=== PATIENT | female | born 1940 | race Caucasian/White ===

== ENCOUNTER 2016-12-15 12:11 | Inpatient (IN) | payer MEDICARE ==
[2016-12-15] MEDS ORDERED: HYDROCODONE/APAP 5/325MG TABLET PO PRN (16:34)
[2016-12-15] MEDS ORDERED: LORATADINE 10 MG TABLET PO PRN (16:35)
[2016-12-15] MEDS: CAPTOPRIL 12.5 MG TABLET PO SCH ×2 (19:03→21:44)
[2016-12-15] MEDS: HYDROCODONE/APAP 5/325MG TABLET PO PRN (21:41)
[2016-12-15] MEDS: DULOXETINE HCL 30 MG CAPSULE.DR PO SCH (21:42)
[2016-12-15] MEDS: SIMVASTATIN 10MG TABLET PO SCH (21:42)
[2016-12-15] MEDS: ASPIRIN 81 MG TABEC PO SCH (21:42)
[2016-12-15] MEDS: PANTOPRAZOLE SODIUM 40 MG TABLET PO SCH (21:42)
[2016-12-15] MEDS: TOLTERODINE 2 MG PO SCH (21:44)
[2016-12-16] MEDS: HYDROCODONE/APAP 5/325MG TABLET PO PRN ×4 (05:20→21:46)
[2016-12-16] MEDS: TRIAMTERENE 37.5/HCTZ 25 CAPSULE PO SCH (10:20)
[2016-12-16] MEDS: METFORMIN ER HCL 500 MG TAB.ER.24H PO SCH (10:21)
[2016-12-16] MEDS: MELOXICAM 7.5 MG TABLET PO SCH (10:21)
[2016-12-16] MEDS: CHOLECALCIFEROL 1,000 UNIT TABLET PO SCH (10:21)
[2016-12-16] MEDS: CAPTOPRIL 12.5 MG TABLET PO SCH ×3 (10:24→21:45)
[2016-12-16] MEDS: CYCLOBENZAPRINE 10MG TABLET PO PRN (10:49)
--- NOTE | 2016-12-16 14:23 | Rehab Evaluation ---
Patient Information - Patient Information Diagnosis: Deconditioning secondary to infection R TKA Ordered Treatment: PT Evaluate and Treat Status: Initial Evaluation History: Detail (The patient was transferred from [facility] to the Swing Bed Unit for IV antiboitics and Rehab on 12/15/16.) Past Medical/Surgical Hx: PAST MEDICAL/SURGICAL HISTORY Past Surgical History tonsillectomy 1947, appendix 1950, gall bladded - 1966, partial vaginal hysterectomy 1976, ovarian cysts removed-1983, left knee scope-1984, left inferior [place] after breaking left leg-1991, sepsis and heart attack 2003, kidney stones removed 2003, spinal fusion 2004 or 2005, sleep apnea 2006, basal cell carcinoma left shoulder 2007 or 2008, Sepsis 2008, back surgery to remove hardware 2009, kidneys stones pulverized-2009, tendon replacement right thumb 2011, toe removed right foot 2013, toe removed left foot 2014, left knee total joint July 2015, right knee total joint September 2015, rhizotomy for back pain 2015 and 2016, ventral hernia repair 11-12-16. 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 PMH - Respiratory Hx Asthma No Hx Bronchitis No Hx Chronic Obstructive No Pulmonary Disease (COPD) Hx Dyspnea Yes: exposure to smoke causes RENETTA Hx Pneumonia Yes Hx Pulmonary Embolism No Hx Sleep Apnea Yes Hx Tuberculosis No Hx of CPAP Yes PMH - Cardiovascular Hx Cardiovascular Disorders Yes Hx Cardiac Catheterization Yes Hx Chest Pain Yes Hx Congestive Heart Failure No Hx Deep Vein Thrombosis No Hx Edema Yes: bilateral lower legs and feet Hx Heart Attack Yes: x2 Hx Hypertension Yes Hx Hypotension No Hx Irregular Heartbeat No Hx Palpitations No Hx Pacemaker/Defibrillator No Hx Vascular Disease No Hx Transient Ischemic Attacks No (TIA) PMH - Neuro Hx Neurological Disorders No Hx Brain Tumor No Hx Cerebrovascular Accident No Hx Dementia No Hx Dizziness No Hx Headaches No Hx Neuropathy No Hx Parkinson's Disease No Hx Seizures No Hx Speech Problem No Hx Syncope No Hx Transient Ischemic Attacks No (TIA) PMH - GI Hx Gastrointestinal Disorders No Hx Abdominal Pain No Hx Celiac Disease No Hx Crohn's Disease No Hx Diverticulitis No Hx Gastrointestinal Bleed No Hx Gastroesophageal Reflux No Hx Hepatitis/Jaundice No Hx Hiatal Hernia No Hx Irritable Bowel No Hx Liver Disease No Hx Nausea/Vomiting No Hx Obstructive Bowel No Hx Pancreatitis No Hx Rectal Bleeding No Hx Ulcer No Hx Weight Loss/Weight Gain No PMH - Hx Bladder Problem Yes: Incontinence, urgency. Had UA done at [facility], results pending Hx Dialysis No Hx Kidney Stones Yes: and sepsis Hx Renal Disease No Hx Urinary Tract Infection Yes Comment: Approximately 40 years ago PMH - Endocrine Hx Endocrine Disorders Yes Hx Diabetes Yes Hx Thyroid Disease Yes Comment: Does daily accuchecks in am PMH - Musculoskeletal Hx Musculoskeletal Disorders Yes Hx Arthritis Yes Hx Back Injury Yes Hx Fibromyalgia No Hx Gout No Hx Musculoskeletal Disease No Hx Osteoporosis No Comment: Spinal surgery PMH - Psych Hx Psychiatric Problems No Hx Anxiety No Hx Behavior Problems No Hx Depression No Hx Emotional Abuse No Hx Sexual Abuse No Hx Suicide Attempt No Major Depressive Episode No Feelings of Hopelessness No PMH - Hematology/Oncology Hx Hematology/Oncology Yes Disorders Hx Anemia Yes: After daughters , none since Hx Blood Disorders No Hx Bruising No Hx Cancer Yes: Basal cell carcinoma removed from left shoulder, no further treatment Hx Chemotherapy No Hx Radiation Therapy No Hx Clotting Problems No Hx Unexplained Bleeding No Premorbid Status: Detail (The patient was independent with all mobility and ADL' s.) Social History: Detail (The patient lives alone in a one story home with a basement with 4 steps at the deck enterance with 2 railings. The patient's bathroom is equipped with a tub/shower combination with grab bars and an elevated toilet. According to the patient , her bathroom is not acessible to a walker. The patient used a standard cane to enter and exit bathroom. The patient's laundary is downstairs, however her daughter has been assisting with laundry and other r d engineer. The patient has two walkers one with wheels , the other with 4 wheels and a seat and 4 single point canes.) Precautions: [place], Fall, Other (PWB R LE, Knee brace on R locked at all times.) - Time With Patient Total Time Spent With Patient (Min): 40 Treatment Procedures: Detail (Initial Evaluation) Subjective Information - Subjective Information Per Patient (The patient had complaints of R knee pain level 5 at the highest using 0 to 10 pain scale.) Objective Data - Mental Status Patient Orientation: Oriented x3 - Visual Perception Appears within normal limits for therapeutic activities - ROM Not within normal limits (R knee ROM is limited ( secondary to R knee infection with spacer in place). All other LE AROM is WNL.) - Strength/Tone Not within normal limits (The patient's L LE strength is 4+ to 5/5 . R LE strength was functional in hip and ankle musculature ( no manual resistance) .The patient was able to acheive a SLR with R LE.) - Bed Mobility Independent (Independent sit to supine transfer.) - Transfers Independent (The patient was independent with sit to and from stand transfer and toilet transfer with verbal cueing and use of grab bar.) - Balance Balance Sitting: Good Balance Standing: Good (The patient was able to stand and pull up pants.) - Gait Detail (The patient ambulated with wheeled walker and brace on R LE with supervision for safety and maximal verbal cues to maintain PWB status on R LE a distance of 40 feet x 1.) Patient Education - Patient Education Teaching Topic: Precautions (The patient was instructed in partial weight bearing meaning 50% of body weight. The patient was unable to maintain this status.) Teaching Method: Discussion Teaching Recipient: Patient Barriers To Learning: Age Related Problem List - Problem List Physical Therapy Problem List: Detail (1) Unable to maintain PWB status on R LE 2) Decreased ambulation distance 3) Nonambulatory on stairs) Goals - Goals Physical Therapy Goals: 1) The patient will ambulate with wheeled walker a distance of 100 feet x 1, PWB on the R LE. 2) Ambulation on stairs with supervision. 3) The patient will be able to safely assess bathroom at home with use of alternate assistive device ( not walker). Prognosis - Prognosis Good Plan - Plan Physical Therapy Plan: PT 3 to 4 times a week M-F for gait training on levels and stairs and functional acitivities.
--- NOTE | 2016-12-16 14:28 | Rehab Evaluation ---
Patient Information - Patient Information Diagnosis: deconditioning d/t infection of R TK removal of hardware, ABX spacer implan Ordered Treatment: OT Evaluate and Treat Status: Initial Evaluation Surgery: No Past Medical/Surgical Hx: PAST MEDICAL/SURGICAL HISTORY Past Surgical History tonsillectomy 1947, appendix 1950, gall bladded - 1966, partial vaginal hysterectomy 1976, ovarian cysts removed-1983, left knee scope-1984, left inferior [place] after breaking left leg-1991, sepsis and heart attack 2003, kidney stones removed 2003, spinal fusion 2004 or 2005, sleep apnea 2006, basal cell carcinoma left shoulder 2007 or 2008, Sepsis 2008, back surgery to remove hardware 2009, kidneys stones pulverized-2009, tendon replacement right thumb 2011, toe removed right foot 2013, toe removed left foot 2014, left knee total joint July 2015, right knee total joint September 2015, rhizotomy for back pain 2015 and 2016, ventral hernia repair 11-12-16. 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 PMH - Respiratory Hx Asthma No Hx Bronchitis No Hx Chronic Obstructive No Pulmonary Disease (COPD) Hx Dyspnea Yes: exposure to smoke causes RENETAT Hx Pneumonia Yes Hx Pulmonary Embolism No Hx Sleep Apnea Yes Hx Tuberculosis No Hx of CPAP Yes PMH - Cardiovascular Hx Cardiovascular Disorders Yes Hx Cardiac Catheterization Yes Hx Chest Pain Yes Hx Congestive Heart Failure No Hx Deep Vein Thrombosis No Hx Edema Yes: bilateral lower legs and feet Hx Heart Attack Yes: x2 Hx Hypertension Yes Hx Hypotension No Hx Irregular Heartbeat No Hx Palpitations No Hx Pacemaker/Defibrillator No Hx Vascular Disease No Hx Transient Ischemic Attacks No (TIA) PMH - Neuro Hx Neurological Disorders No Hx Brain Tumor No Hx Cerebrovascular Accident No Hx Dementia No Hx Dizziness No Hx Headaches No Hx Neuropathy No Hx Parkinson's Disease No Hx Seizures No Hx Speech Problem No Hx Syncope No Hx Transient Ischemic Attacks No (TIA) PMH - GI Hx Gastrointestinal Disorders No Hx Abdominal Pain No Hx Celiac Disease No Hx Crohn's Disease No Hx Diverticulitis No Hx Gastrointestinal Bleed No Hx Gastroesophageal Reflux No Hx Hepatitis/Jaundice No Hx Hiatal Hernia No Hx Irritable Bowel No Hx Liver Disease No Hx Nausea/Vomiting No Hx Obstructive Bowel No Hx Pancreatitis No Hx Rectal Bleeding No Hx Ulcer No Hx Weight Loss/Weight Gain No PMH - Hx Bladder Problem Yes: Incontinence, urgency. Had UA done at [facility], results pending Hx Dialysis No Hx Kidney Stones Yes: and sepsis Hx Renal Disease No Hx Urinary Tract Infection Yes Comment: Approximately 40 years ago PMH - Endocrine Hx Endocrine Disorders Yes Hx Diabetes Yes Hx Thyroid Disease Yes Comment: Does daily accuchecks in am PMH - Musculoskeletal Hx Musculoskeletal Disorders Yes Hx Arthritis Yes Hx Back Injury Yes Hx Fibromyalgia No Hx Gout No Hx Musculoskeletal Disease No Hx Osteoporosis No Comment: Spinal surgery PMH - Psych Hx Psychiatric Problems No Hx Anxiety No Hx Behavior Problems No Hx Depression No Hx Emotional Abuse No Hx Sexual Abuse No Hx Suicide Attempt No Major Depressive Episode No Feelings of Hopelessness No PMH - Hematology/Oncology Hx Hematology/Oncology Yes Disorders Hx Anemia Yes: After daughters , none since Hx Blood Disorders No Hx Bruising No Hx Cancer Yes: Basal cell carcinoma removed from left shoulder, no further treatment Hx Chemotherapy No Hx Radiation Therapy No Hx Clotting Problems No Hx Unexplained Bleeding No Premorbid Status: Detail (Pt lives alone in a 2 story house with basement. She stays on the 1st floor. She has 4 steps with imer handrails at the entrance. She has a tub/shower combination with grab bars and she usually stands to shower. She is unable to use her walker in the bathroom therefore she uses a cane in the bathroom. Prior to hospitalization she was Ind with driving, meal prep and self cares. Her daughter completes laundry and assists with home mgmt. She has an elevated toilet, a 2 wheeled walker, a 4 wheeled walker, 4 straight canes and 2 reachers.) Social History: Detail (Pt has 3 daughters who live locally and a sister.) Precautions: [place], Fall, Other (PWB right LE, knee immobilizer on at all times.) - Time With Patient Total Time Spent With Patient (Min): 45 Treatment Procedures: Detail (OT eval low complexity) Subjective Information - Subjective Information Per Patient Objective Data - Pain Pain Present: Yes (5/10 pain in right knee) - Mental Status Patient Orientation: Oriented x3 - Visual Perception Appears within normal limits for therapeutic activities - ROM Within normal limits (Imer UE AROM WNL) - Strength/Tone Within normal limits (Imer UE MMT 4+/5 throughout) - Coordination Appears within normal limits for therapeutic activities - Bed Mobility Independent (Ind with supine to sit and sit to supine) - Transfers Independent (Ind with sit to stand from EOB, chair and toilet using 2 wheeled walker.) - Balance Balance Sitting: Good Balance Standing: Good - Sensation Intact - Gait Detail (Pt ambulatory in room and hallway with 2 wheel walker. She c/o increased knee pain with activity/ambulation.) - ADL's/IADL's Detail (Pt able to don hospital underwear and hospital pants with mod assist to start over feet due to increased knee and back pain. She was Ind with toileting and washing hands at sink.) Therapy Assessment - Therapy Assessment Detail (Pt very easily fatigued with activity, decreased Ind with LE ADLs, decreased Ind with showering/bathing due to immobilizer.) Problem List - Problem List Occupational Therapy Problem List: Detail (1. Decreased endurance needed for ADLs/IADLs. 2. Decreased Ind with total body dressing. 3. Decreased Ind with showering/bathing.) Goals - Goals Occupational Therapy Goals: 1. Pt will be Ind with total body dressing using adaptive equipment. 2. Pt will be Ind with showering and/or sponge bathing at sink. 3. Pt will demonstrate improved endurance to allow safe and Ind return home. Prognosis - Prognosis Good Plan - Plan Occupational Therapy Plan: OT 2-4 days per week to address endurance, self cares and functional mobility to allow safe and Ind return home.
[2016-12-16] MEDS: DAPTOMYCIN 500 MG/VIAL IV SCH (14:43)
[2016-12-16] MEDS: SIMVASTATIN 10MG TABLET PO SCH (21:45)
[2016-12-16] MEDS: ASPIRIN 81 MG TABEC PO SCH (21:45)
[2016-12-16] MEDS: PANTOPRAZOLE SODIUM 40 MG TABLET PO SCH (21:45)
[2016-12-16] MEDS: DULOXETINE HCL 30 MG CAPSULE.DR PO SCH (21:46)
[2016-12-16] MEDS: TOLTERODINE 2 MG PO SCH (21:49)
[2016-12-17] MEDS: TRAMADOL HCL 50 MG TABLET PO PRN (00:06)
[2016-12-17 08:05] LABS: URINE APPEARANCE SL CLOUDY; URINE BILIRUBIN NEGATIVE (NEGATIVE); URINE BLOOD NEGATIVE (NEGATIVE); URINE COLOR YELLOW; URINE GLUCOSE (UA) NEGATIVE (NEGATIVE); URINE KETONE NEGATIVE (NEGATIVE); URINE LEUKOCYTE ESTERASE SMALL (NEGATIVE); URINE NITRITE NEGATIVE (NEGATIVE); URINE PROTEIN NEGATIVE (NEGATIVE); URINE UROBILINOGEN 0.2 E.U./dL (0.20 - 1.00)
[2016-12-17 08:50] LABS: URINE RBC 0 - 2 (NONE SEEN); URINE SQUAMOUS EPITHELIAL CELL 0 - 2 /hpf; URINE WBC 0 - 2 (0-2/hpf)
[2016-12-17] MEDS: CAPTOPRIL 12.5 MG TABLET PO SCH ×3 (10:59→22:27)
[2016-12-17] MEDS: TRIAMTERENE 37.5/HCTZ 25 CAPSULE PO SCH (11:00)
[2016-12-17] MEDS: MELOXICAM 7.5 MG TABLET PO SCH (11:00)
[2016-12-17] MEDS: METFORMIN ER HCL 500 MG TAB.ER.24H PO SCH (11:00)
[2016-12-17] MEDS: CHOLECALCIFEROL 1,000 UNIT TABLET PO SCH (11:01)
[2016-12-17] MEDS: HYDROCODONE/APAP 5/325MG TABLET PO PRN ×2 (11:04→22:29)
--- NOTE | 2016-12-17 11:27 | Physical Therapy Tx Note ---
Physical Therapy Tx Note - Treatment Note Tolerated: Good Total Time Spent With Patient: 40 Physical Therapy Tx Note: Detail (Patient was seated in bathroom upon FORKLIFT MECHANIC arrival. Patient states 4/10 pain in right knee. Patient states tired today, didn't sleep well last night. Patient transferred sit to and from stand independently. Patient ambulated 13 feet with wheeled walker SBA x1. Patient transferred sit to and from stand independently. Patient ambulated 212 feet with wheeled walker SBA x1. Patient performed the following exercises seated in chair x10-15 reps each: heel raises, toe raises, left hip flexion, left LAQ, hip abduction with red theraband, isometric hip adduction, seated glut squeezes , abdominal isometrics, right SLR, and quad sets. Patient tolerated treatment well. Patient reports complaints of UE pain with ambulation. Patient displays decreased strength and endurance with seated hip flexion, LAQ, SLR, quad sets, glut squeezes, and abdominal isometrics. Patient reports fatigued after treatment. Patient was left seated in chair with call light within reach.) Physical Therapy Problem List: Detail (1) Unable to maintain PWB status on R LE 2) Decreased ambulation distance 3) Nonambulatory on stairs) Physical Therapy Goals: 1) The patient will ambulate with wheeled walker a distance of 100 feet x 1, PWB on the R LE. 2) Ambulation on stairs with supervision. 3) The patient will be able to safely assess bathroom at home with use of alternate assistive device ( not walker). Prognosis: Good Physical Therapy Plan: PT 3 to 4 times a week M-F for gait training on levels and stairs and functional acitivities.
[2016-12-17] MEDS: DAPTOMYCIN 500 MG/VIAL IV SCH (15:02)
[2016-12-17] MEDS: SIMVASTATIN 10MG TABLET PO SCH (22:27)
[2016-12-17] MEDS: ASPIRIN 81 MG TABEC PO SCH (22:28)
[2016-12-17] MEDS: DULOXETINE HCL 30 MG CAPSULE.DR PO SCH (22:28)
[2016-12-17] MEDS: TOLTERODINE 2 MG PO SCH (22:31)
[2016-12-17] MEDS: PANTOPRAZOLE SODIUM 40 MG TABLET PO SCH (22:33)
[2016-12-18] MEDS: HYDROCODONE/APAP 5/325MG TABLET PO PRN ×3 (02:52→22:05)
[2016-12-18] MEDS: CHOLECALCIFEROL 1,000 UNIT TABLET PO SCH (10:03)
[2016-12-18] MEDS: CAPTOPRIL 12.5 MG TABLET PO SCH ×3 (10:04→22:04)
[2016-12-18] MEDS: TRIAMTERENE 37.5/HCTZ 25 CAPSULE PO SCH (10:04)
[2016-12-18] MEDS: METFORMIN ER HCL 500 MG TAB.ER.24H PO SCH (10:04)
[2016-12-18] MEDS: MELOXICAM 7.5 MG TABLET PO SCH (10:05)
--- NOTE | 2016-12-18 10:50 | Occupational Therapy Tx Note ---
Occupational Therapy Tx Note - Treatment Note Tolerated: Good Total Time Spent With Patient: 60 Occupational Therapy Treatment Note: Detail (Pt sitting in bedside chair upon arrival. Ind. sit<>stand t/f w/ 2WW them SBA amb into bathroom for Independent toileting & toilet t/f. Pt ind. after setup to brush teeth at bedside chair. Ind. w/ doff of gown. Ind w/ sponge bathing after initial setup for face, underarms, BUE's, abdomen. Pt declined LB sponge bathing 2^ having just done this last night. Ind w/ dress don. Pt t/f'd to bed from bedside chair ind. to adjust immobilizer brace 2^ brace sliding down. Ind w/ bed mob. Mod A to adjust and re-tighten strapping on immobilizer brace. SBA amb w/ 2WW 115 ft. Pt returned to room to complete theraband ex's to BUE's. Pt completed 10 reps of shld flex, shld ext, shld abd, horz. abd, tricep, and bicep curls (left side only for bicep curls). Pt [place] all ex's well and eval wanting to do more although reports being tired post treatment session.) Occupational Therapy Problem List: Detail (1. Decreased endurance needed for ADLs/IADLs. 2. Decreased Ind with total body dressing. 3. Decreased Ind with showering/bathing.) Occupational Therapy Goals: 1. Pt will be Ind with total body dressing using adaptive equipment. 2. Pt will be Ind with showering and/or sponge bathing at sink. 3. Pt will demonstrate improved endurance to allow safe and Ind return home. Prognosis: Good Occupational Therapy Plan: OT 2-4 days per week to address endurance, self cares and functional mobility to allow safe and Ind return home.
[2016-12-18] MEDS: DAPTOMYCIN 500 MG/VIAL IV SCH (15:16)
[2016-12-18] MEDS: SIMVASTATIN 10MG TABLET PO SCH (22:04)
[2016-12-18] MEDS: DULOXETINE HCL 30 MG CAPSULE.DR PO SCH (22:04)
[2016-12-18] MEDS: PANTOPRAZOLE SODIUM 40 MG TABLET PO SCH (22:05)
[2016-12-18] MEDS: ASPIRIN 81 MG TABEC PO SCH (22:05)
[2016-12-18] MEDS: TOLTERODINE 2 MG PO SCH (22:05)
[2016-12-18] MEDS: CYCLOBENZAPRINE 10MG TABLET PO PRN (23:47)
[2016-12-19] MEDS: HYDROCODONE/APAP 5/325MG TABLET PO PRN ×3 (07:24→22:47)
[2016-12-19] MEDS: CAPTOPRIL 12.5 MG TABLET PO SCH ×3 (10:17→22:47)
[2016-12-19] MEDS: METFORMIN ER HCL 500 MG TAB.ER.24H PO SCH (10:18)
[2016-12-19] MEDS: TRIAMTERENE 37.5/HCTZ 25 CAPSULE PO SCH (10:18)
[2016-12-19] MEDS: MELOXICAM 7.5 MG TABLET PO SCH (10:18)
[2016-12-19] MEDS: CHOLECALCIFEROL 1,000 UNIT TABLET PO SCH (10:18)
[2016-12-19 12:50] LABS: ALB/GLOB RATIO 1.2 (1.1-1.8); ALBUMIN 3.7 g/dL (4.0-5.0); ALKALINE PHOSPHATASE 100 U/L (35-104); ALT/SGPT 13 U/L (<33); AST/SGOT 16 U/L (10.0-35.0); BLOOD UREA NITROGEN 21 mg/dL (8-23); CREATININE 0.7 mg/dL (0.5-0.9); EST GLOMERULAR FILTRATION RATE > 60 mL/min; GLUCOSE,RANDOM 137 mg/dL (74-109); TOTAL PROTEIN 6.7 g/dL (6.6-8.7)
[2016-12-19] MEDS: DAPTOMYCIN 500 MG/VIAL IV SCH (15:44)
[2016-12-19] MEDS: DULOXETINE HCL 30 MG CAPSULE.DR PO SCH (22:47)
[2016-12-19] MEDS: PANTOPRAZOLE SODIUM 40 MG TABLET PO SCH (22:47)
[2016-12-19] MEDS: ASPIRIN 81 MG TABEC PO SCH (22:47)
[2016-12-19] MEDS: SIMVASTATIN 10MG TABLET PO SCH (22:47)
[2016-12-19] MEDS: TOLTERODINE 2 MG PO SCH (22:48)
[2016-12-19] MEDS: CYCLOBENZAPRINE 10MG TABLET PO PRN (22:51)
[2016-12-20] MEDS: CYCLOBENZAPRINE 10MG TABLET PO PRN ×2 (08:58→22:10)
[2016-12-20] MEDS: HYDROCODONE/APAP 5/325MG TABLET PO PRN ×3 (08:58→22:10)
[2016-12-20] MEDS: CHOLECALCIFEROL 1,000 UNIT TABLET PO SCH (09:46)
[2016-12-20] MEDS: CAPTOPRIL 12.5 MG TABLET PO SCH ×3 (09:47→22:27)
[2016-12-20] MEDS: METFORMIN ER HCL 500 MG TAB.ER.24H PO SCH (09:47)
[2016-12-20] MEDS: MELOXICAM 7.5 MG TABLET PO SCH (09:47)
[2016-12-20] MEDS: TRIAMTERENE 37.5/HCTZ 25 CAPSULE PO SCH (09:47)
[2016-12-20] MEDS: DAPTOMYCIN 500 MG/VIAL IV SCH (16:11)
[2016-12-20] MEDS: ASPIRIN 81 MG TABEC PO SCH (22:27)
[2016-12-20] MEDS: TOLTERODINE 2 MG PO SCH (22:27)
[2016-12-20] MEDS: DULOXETINE HCL 30 MG CAPSULE.DR PO SCH (22:27)
[2016-12-20] MEDS: PANTOPRAZOLE SODIUM 40 MG TABLET PO SCH (22:27)
[2016-12-20] MEDS: SIMVASTATIN 10MG TABLET PO SCH (22:28)
[2016-12-21] MEDS: METFORMIN ER HCL 500 MG TAB.ER.24H PO SCH (09:40)
[2016-12-21] MEDS: HYDROCODONE/APAP 5/325MG TABLET PO PRN ×3 (09:40→19:53)
[2016-12-21] MEDS: TRIAMTERENE 37.5/HCTZ 25 CAPSULE PO SCH (09:40)
[2016-12-21] MEDS: CHOLECALCIFEROL 1,000 UNIT TABLET PO SCH (09:40)
[2016-12-21] MEDS: MELOXICAM 7.5 MG TABLET PO SCH (09:40)
[2016-12-21] MEDS: CAPTOPRIL 12.5 MG TABLET PO SCH ×3 (09:41→22:34)
--- NOTE | 2016-12-21 10:22 | Physical Therapy Tx Note ---
Physical Therapy Tx Note - Treatment Note Tolerated: Good Total Time Spent With Patient: 45 Physical Therapy Tx Note: Detail (Patient states 5/10 pain in right knee. Patient states would like to try a car transfer today. Patient transferred sit to and from stand SBA x1. Patient ambulated 178 feet with wheeled walker SBA x1. Patient transferred sit to and from stand SBA x1. Patient performed the following exercises x10 reps each: L SLR, quad sets, glut squeezes, L hamstring sets, abdominal isometrics, L supine hip abduction with red theraband, L supine hip adduction with red theraband, and ankle pumps. Patient tolerated treatment well. Patient reports knee sore after treatment. Patient was left supine in bed with call light within reach. STOREROOM KEEPER returned 30 minutes later to practice car transfer. Patient transferred sit to and from stand from bed to wheelchair SBA x1. Patient transferred sit to and and from stand from wheelchair to and from car SBA x1. Patient transferred sit to and from stand wheelchair to chair. Patient reports knee sore after transfer. Patient was left seated in chair with call light within reach.) Physical Therapy Problem List: Detail (1) Unable to maintain PWB status on R LE 2) Decreased ambulation distance 3) Nonambulatory on stairs) Physical Therapy Goals: 1) The patient will ambulate with wheeled walker a distance of 100 feet x 1, PWB on the R LE. 2) Ambulation on stairs with supervision. 3) The patient will be able to safely assess bathroom at home with use of alternate assistive device ( not walker). Prognosis: Good Physical Therapy Plan: PT 3 to 4 times a week M-F for gait training on levels and stairs and functional acitivities.
[2016-12-21] MEDS: CYCLOBENZAPRINE 10MG TABLET PO PRN (11:14)
[2016-12-21] MEDS: TRAMADOL HCL 50 MG TABLET PO PRN ×3 (11:16→22:35)
[2016-12-21] MEDS: DAPTOMYCIN 500 MG/VIAL IV SCH (14:38)
[2016-12-21] MEDS: 0.9 % SODIUM CHLORIDE 10ML SYR IVP SCH ×2 (14:38→14:45)
[2016-12-21] MEDS: HEPARIN SODIUM FLUSH 100 UNITS/ML SYR 5ML IVP SCH (14:45)
[2016-12-21] MEDS: DULOXETINE HCL 30 MG CAPSULE.DR PO SCH (22:34)
[2016-12-21] MEDS: ASPIRIN 81 MG TABEC PO SCH (22:34)
[2016-12-21] MEDS: PANTOPRAZOLE SODIUM 40 MG TABLET PO SCH (22:34)
[2016-12-21] MEDS: SIMVASTATIN 10MG TABLET PO SCH (22:34)
[2016-12-21] MEDS: TOLTERODINE 2 MG PO SCH (22:35)
[2016-12-22] MEDS: HYDROCODONE/APAP 5/325MG TABLET PO PRN ×3 (01:07→20:50)
[2016-12-22] MEDS: CAPTOPRIL 12.5 MG TABLET PO SCH ×3 (09:14→22:53)
[2016-12-22] MEDS: METFORMIN ER HCL 500 MG TAB.ER.24H PO SCH (09:15)
[2016-12-22] MEDS: TRIAMTERENE 37.5/HCTZ 25 CAPSULE PO SCH (09:15)
[2016-12-22] MEDS: MELOXICAM 7.5 MG TABLET PO SCH (09:15)
[2016-12-22] MEDS: CHOLECALCIFEROL 1,000 UNIT TABLET PO SCH (09:16)
--- NOTE | 2016-12-22 11:13 | Physical Therapy Tx Note ---
Physical Therapy Tx Note - Treatment Note Tolerated: Good Total Time Spent With Patient: 30 Physical Therapy Tx Note: Detail (The patient was up in a chair when PT arrived. The patient required assist to put on R shoe due to increased edema and was independent donning L shoe with sewing machine operator paper bags. The patient had complaints of R knee pain and shoulder pain when ambulating. The patient ambulated 140 feet with 2 wheeled walker independently PWB on R LE. The patient completed the following LE strengthening while supine: L SLR, hip abduction and adduction with red T-band, L quad sets and hamstring sets all x 10 reps, gluteal sets and abdominal isometrics x 10 reps. The patient tolerated treatment well with only complaints of R shoulder during ambulation.) Physical Therapy Problem List: Detail (1) Unable to maintain PWB status on R LE 2) Decreased ambulation distance 3) Nonambulatory on stairs) Physical Therapy Goals: 1) The patient will ambulate with wheeled walker a distance of 100 feet x 1, PWB on the R LE. 2) Ambulation on stairs with supervision. 3) The patient will be able to safely assess bathroom at home with use of alternate assistive device ( not walker). Physical Therapy Plan: PT 3 to 4 times a week M-F for gait training on levels and stairs and functional acitivities.
[2016-12-22] MEDS: 0.9 % SODIUM CHLORIDE 10ML SYR IVP SCH (15:57)
[2016-12-22] MEDS: DAPTOMYCIN 500 MG/VIAL IV SCH (15:57)
[2016-12-22] MEDS: HEPARIN SODIUM FLUSH 100 UNITS/ML SYR 5ML IVP SCH (16:08)
[2016-12-22] MEDS: PANTOPRAZOLE SODIUM 40 MG TABLET PO SCH (22:52)
[2016-12-22] MEDS: ASPIRIN 81 MG TABEC PO SCH (22:52)
[2016-12-22] MEDS: TOLTERODINE 2 MG PO SCH (22:53)
[2016-12-22] MEDS: DULOXETINE HCL 30 MG CAPSULE.DR PO SCH (22:53)
[2016-12-22] MEDS: SIMVASTATIN 10MG TABLET PO SCH (22:53)
[2016-12-23] MEDS: CAPTOPRIL 12.5 MG TABLET PO SCH ×3 (10:16→22:03)
[2016-12-23] MEDS: TRIAMTERENE 37.5/HCTZ 25 CAPSULE PO SCH (10:17)
[2016-12-23] MEDS: MELOXICAM 7.5 MG TABLET PO SCH (10:18)
[2016-12-23] MEDS: METFORMIN ER HCL 500 MG TAB.ER.24H PO SCH (10:18)
[2016-12-23] MEDS: CHOLECALCIFEROL 1,000 UNIT TABLET PO SCH (10:18)
[2016-12-23] MEDS: OXYCODONE/APAP 10MG-325MG TABLET PO PRN ×2 (10:20→20:23)
--- NOTE | 2016-12-23 13:19 | Occupational Therapy Tx Note ---
Occupational Therapy Tx Note - Treatment Note Tolerated: Fair Total Time Spent With Patient: 45 (ADL) Occupational Therapy Treatment Note: Detail (S: Pt up in chair, ready to attempt showering. O: Sit to stand and amb to shower bench with 2 wheeled walker Indly. Doffed PJ gown and briefs Ind with lead handler. Doffed knee brace in sitting with mod difficulty but Indly. Completed total body showering in sitting Indly with hand held shower. Dried self Indly. Donned shirt Indly. Donned right knee brace with verbal cues and modified technique. Donned underpants with lead handler Indly. Sit to stand and amb to sink for oral hygiene and brushing hair Indly. Pt amb back to chair with 2 wheeled walker Indly. Nursing to complete dressing change and finish LE dressing. A: Pt fatigued and had moderate difficulty with doffing and donning knee brace. Reports difficulty with shiela hand strength needed for velcro closures on brace.) Occupational Therapy Problem List: Detail (1. Decreased endurance needed for ADLs/IADLs. 2. Decreased Ind with total body dressing. 3. Decreased Ind with showering/bathing.) Occupational Therapy Goals: 1. Pt will be Ind with total body dressing using adaptive equipment. 2. Pt will be Ind with showering and/or sponge bathing at sink. 3. Pt will demonstrate improved endurance to allow safe and Ind return home. Prognosis: Good (Will address hand strengthening as well as don/doffing knee brace.) Occupational Therapy Plan: OT 2-4 days per week to address endurance, self cares and functional mobility to allow safe and Ind return home.
[2016-12-23] MEDS: 0.9 % SODIUM CHLORIDE 10ML SYR IVP SCH (15:16)
[2016-12-23] MEDS: DAPTOMYCIN 500 MG/VIAL IV SCH (15:17)
[2016-12-23] MEDS: HEPARIN SODIUM FLUSH 100 UNITS/ML SYR 5ML IVP SCH (15:20)
[2016-12-23] MEDS: TOLTERODINE 2 MG PO SCH (22:03)
[2016-12-23] MEDS: PANTOPRAZOLE SODIUM 40 MG TABLET PO SCH (22:03)
[2016-12-23] MEDS: ASPIRIN 81 MG TABEC PO SCH (22:03)
[2016-12-23] MEDS: SIMVASTATIN 10MG TABLET PO SCH (22:03)
[2016-12-23] MEDS: DULOXETINE HCL 30 MG CAPSULE.DR PO SCH (22:03)
[2016-12-24] MEDS: OXYCODONE/APAP 10MG-325MG TABLET PO PRN ×4 (00:23→18:21)
--- NOTE | 2016-12-24 10:25 | Physical Therapy Tx Note ---
Physical Therapy Tx Note - Treatment Note Tolerated: Good Total Time Spent With Patient: 30 Physical Therapy Tx Note: Detail (Patient states 4/10 pain in right knee. Patient states right shoulder and hands are sore today. Patient transferred sit to and from stand independently. Patient ambulated 280 feet with wheeled walker SBA x1. Patient performed the following exercises x10-12 reps each: rowing with red theraband, shoulder extension with red theraband, shoulder external rotation with red theraband, PNF D1 and D2 flexion and extension diagonals, bicep curls with red theraband, tricep extension with red theraband, and dips. Patient tolerated treatment well. Patient displays decreased strength and endurance with dips, bicep curls, tricep extension, PNF D1 and D2 flexion and extension diagonals, and shoulder external rotation. Patient reports shoulder sore after treatment. Patient displays shortness of breath with exercises. Patient was left seated in chair with call light within reach.) Physical Therapy Problem List: Detail (1) Unable to maintain PWB status on R LE 2) Decreased ambulation distance 3) Nonambulatory on stairs) Physical Therapy Goals: 1) The patient will ambulate with wheeled walker a distance of 100 feet x 1, PWB on the R LE. 2) Ambulation on stairs with supervision. 3) The patient will be able to safely assess bathroom at home with use of alternate assistive device ( not walker). Prognosis: Good Physical Therapy Plan: PT 3 to 4 times a week M-F for gait training on levels and stairs and functional acitivities.
[2016-12-24] MEDS: CAPTOPRIL 12.5 MG TABLET PO SCH ×4 (10:41→21:18)
[2016-12-24] MEDS: MELOXICAM 7.5 MG TABLET PO SCH (10:41)
[2016-12-24] MEDS: CHOLECALCIFEROL 1,000 UNIT TABLET PO SCH (10:41)
[2016-12-24] MEDS: TRIAMTERENE 37.5/HCTZ 25 CAPSULE PO SCH (10:42)
[2016-12-24] MEDS: METFORMIN ER HCL 500 MG TAB.ER.24H PO SCH (10:42)
[2016-12-24] MEDS: TRAMADOL HCL 50 MG TABLET PO PRN ×2 (10:51→21:17)
[2016-12-24] MEDS: DAPTOMYCIN 500 MG/VIAL IV SCH (14:49)
[2016-12-24] MEDS: 0.9 % SODIUM CHLORIDE 10ML SYR IVP SCH (14:49)
[2016-12-24] MEDS: HEPARIN SODIUM FLUSH 100 UNITS/ML SYR 5ML IVP SCH (14:53)
--- NOTE | 2016-12-24 15:43 | History & Physical ---
History of Present Illness - Date Date of Service for History & Physical: 12/21/16 - History of Present Illness Admitting Diagnosis: Deconditioning due to infection of RTK, removal of harware and ABX spacer implanted General - Cognitive Patterns Orientation: Oriented x3 - Communication Preferred Language?: Montenegrin [employer] Required: No Level of Education: High School, College Preferred Method of Learning: Seeing, Doing, Reading Comprehension Ability: No Impairment Able to Read: Yes Able to Write: Yes Select best description of speech pattern: Clear Speech Ability to express ideas and wants: Understood Understanding verbal content: Understands - Psychosocial Well-Being Usual Living Arrangement: Alone Living Arrangement Comment: two story home Relationship Status: / Current and Past Employment History: Retired Employment History Comment: worked as a police department secretary in offices Clubs/Organizations Belongs To: [email or web address] Christianity: Yazdanism Latter-Day: [facility] Yazdanism Verbalizes Interest in Activities During Stay: Yes Specify Interests: simone, coloring, scrapbooking Personality: Extroverted States they do not want to participate in group activities: No Patient Involved in the Community: Yes Describe Involvement: [employer] Patient Drives: Yes Patients Leisure Activities Prior to Admission: [employer] groups, coloring, crocheting, spending time with family Plans to Return to the Following Leisure Activities: same as above - Physical Functioning Activity Level: Up as tolerated Turning: Self ad nanci ROM Ability: Moves all extremities Assistive Devices: 2 Wheel Walker Activity Level Comment: May be up in vivas independently per Jael PT Ambulation Ability: Independent Bed Mobility: Independent Transfer Ability: Independent Bathing Ability: Needs Assist Personal Hygiene: Independent Dressing Ability: Independent Eating (Feeding) Ability: Independent Toileting Ability: Independent Administer Own Medication: Independent - Continence Bowel Pattern: Normal for Patient Bladder Pattern: Normal, Dribbling, Urgency, Incontinent Urinary Incontinence: Urge - Dental Status Broken or loosely fitting full or partial dentures: No No natural teeth or tooth fragment(s) (edentulous): No Abnormal mouth tissue (ulcers, masses, oral lesions, etc.): No Obvious or likely cavity or broken natural teeth: No Inflamed or bleeding gums or loose natural teeth: No Mouth/facial pain, discomfort or difficulty chewing: No - Nutrition Screening Poor oral intake > 1 week: No Unplanned weight loss in specified time frame: No Nutrition Support via tube feedings or parenteral nutrition: No Pressure Ulcer: No Significantly underweight define as BMI <18.5 kg/m2: No Albumin <2.5mg/dL: No Persistent nausea/vomiting/diarrhea >3 days: No Difficulty chewing/swallowing/mouth sores: No Admitting Diagnosis: Yes Nutrition Risk Score: Low Risk Review of Systems Reviewed: No additional complaints except as noted below Constitutional: Reports: As per HPI. Denies: Chills, Fever, Malaise, Night sweats, Weakness, Weight change Eyes: Reports: As per HPI. Denies: Eye discharge, Eye pain, Photophobia, Vision change ENT: Reports: As per HPI. Denies: Congestion, Dental pain, Ear pain, Epistaxis , Hearing loss, Throat pain Respiratory: Reports: As per HPI. Denies: Cough, Dyspnea, Hemoptysis, Stridor, Wheezes Cardiovascular: Reports: As per HPI. Denies: Arrhythmia, Chest pain, Dyspnea on exertion, Edema, Murmurs, Orthopnea, Palpitations, Paroxysmal nocturnal dyspnea, Rheumatic Fever, Syncope Endocrine: Reports: As per HPI. Denies: Fatigue, Heat or cold intolerance, Polydipsia, Polyuria Gastrointestinal: Reports: As per HPI. Denies: Abdominal pain, Constipation, Diarrhea, Hematemesis, Hematochezia, Melena, Nausea, Vomiting Genitourinary: Reports: As per HPI. Denies: Abnormal menses, Discharge, Dyspareunia, Dysuria, Frequency, Hematuria, Incontinence, Retention, Urgency Musculoskeletal: Reports: As per HPI. Denies: Arthralgia, Back pain, Gout, Joint swelling, Myalgia, Neck pain Skin: Reports: As per HPI. Denies: Bruising, Change in color, Change in hair/ nails, Lesions, Pruritus, Rash Neurological: Reports: As per HPI. Denies: Abnormal gait, Confusion, Headache, Numbness, Paresthesias, Seizure, Tingling, Tremors, Vertigo, Weakness Psychiatric: Reports: As per HPI. Denies: Anxiety, Auditory hallucinations, Depression, Homicidal thoughts, Suicidal thoughts, Visual hallucinations Hematological/Lymphatic: Reports: As per HPI. Denies: Anemia, Blood Clots, Easy bleeding, Easy bruising, Swollen glands Past Medical History - SOCIAL HISTORY Smoking Status: Former smoker Alcohol Use: Rare Drug use: None - SURGICAL HISTORY Past Surgical History: tonsillectomy 1946, appendix 1949, gall bladded-1966, partial vaginal hysterectomy 1976, ovarian cysts removed-1983, left knee scope- 1984, left inferior CA after breaking left leg-1991, sepsis and heart attack 2003, kidney stones removed 2003, spinal fusion 2004 or 2005, sleep apnea 2006, basal cell carcinoma left shoulder 2007 or 2008, Sepsis 2008, back surgery to remove hardware 2009, kidneys stones pulverized-2009, tendon replacement right thumb 2011, toe removed right foot 2013, toe removed left foot 2014, left knee total joint July 2015, right knee total joint September 2015, rhizotomy for back pain 2015 and 2016, ventral hernia repair 11-12-16. Infected right total knee arthroplasty with removal of arthroplasty and placement of antibiotic spacer . - RESPIRATORY Hx Asthma: No Hx Bronchitis: No Hx COPD: No Hx Dyspnea: Yes (exposure to smoke causes RENETTA) Hx Pneumonia: Yes Hx Pulmonary Embolism: No Hx Sleep Apnea: Yes Hx Tuberculosis: No - CARDIOVASCULAR Hx Cardio Disorders: Yes Hx Cardiac Cath: Yes Hx Chest Pain: Yes Hx CHF: No Hx Deep Vein Thrombosis: No Hx Edema: Yes (bilateral lower legs and feet) Hx Heart Attack: Yes (x2) Hx Hypertension: Yes Hx Hypotension: No Hx Irregular Heartbeat: No Hx Palpitations: No Hx Pacemaker/Defib: No Hx Vascular Disease: No - NEURO Hx Seizures: No - GI Hx GI Disorders: No Hx Abdominal Pain: No Hx Celiac Disease: No Hx Crohn's Disease: No Hx Diverticulitis: No Hx GI Bleed: No Hx Reflux: No Hx Hepatitis/Jaundice: No Hx Hiatal Hernia: No Hx Irritable Bowel: No Hx Liver Disease: No Hx Nausea/Vomiting: No Hx Obstructive Bowel: No Hx Pancreatitis: No Hx Rectal Bleeding: No Hx Ulcer: No Hx Wt Loss/Wt Gain: No - Hx Bladder Problem: Yes (Incontinence, urgency. Had UA done at [facility], results pending) Hx Dialysis: No Hx Kidney Stones: Yes (and sepsis) Hx Renal Disease: No Hx UTI: Yes Comment:: Approximately 40 years ago - ENDOCRINE Hx Diabetes: Yes - MUSCULOSKELETAL Hx Musculoskeletal Disorders: Yes Hx Arthritis: Yes Hx Back Injury: Yes Hx Fibromyalgia: No Hx Gout: No Hx Musculoskeletal Disease: No Hx Osteoporosis: No Comment:: Spinal surgery - PSYCH Hx Psych Problems: No Hx Anxiety: No Hx Behavior Problems: No Hx Depression: No Hx Emotional Abuse: No Hx Sexual Abuse: No Hx Suicide Attempt: No Major Depressive Episode: No Feelings of Hopelessness: No - HEMATOLOGY/ONCOLOGY Hx Hematology/Oncology Disorders: Yes Hx Anemia: Yes (After daughters , none since) Hx Blood Disorders: No Hx Bruising: No Hx Cancer: Yes (Basal cell carcinoma removed from left shoulder, no further treatment) Hx Chemotherapy: No Hx Radiation Therapy: No Hx Clotting Problems: No Hx Unexplained Bleeding: No Hx Blood Transfusions: No Family Medical History Any Significant Family History?: Yes Hx Alcohol Use: Father, Mother Hx Cancer: Mother *Cancer Comment: breast cancer Hx HTN: Mother, Grandparents H&P Meds/Allergies - Allergies Allergies: Allergies Allergy/AdvReac Type Severity Reaction Status Date / Time albuterol Allergy BLISTERS Verified 12/15/16 17:10 apremilast [From Otezla] Allergy SWELLING Verified 12/15/16 17:10 (GENERAL) celecoxib [From Celebrex] Allergy SWELLING Verified 12/15/16 17:10 (GENERAL) doxycycline Allergy SWELLING Verified 12/15/16 17:10 OF THE FACE linezolid [From Zyvox] Allergy SWELLING Verified 12/15/16 17:10 (GENERAL) oxybutynin Allergy SWELLING Verified 12/15/16 17:10 OF THE FACE oxycodone [From Percocet] Allergy ALTERED Verified 12/15/16 17:10 MENTAL STATUS Sulfa (Sulfonamide Allergy ANEMIA Verified 12/15/16 17:10 Antibiotics) adhesive tape AdvReac RASH Verified 12/15/16 17:10 onion AdvReac NAUSEA AND Verified 12/15/16 17:10 VOMITING pregabalin [From Lyrica] AdvReac DIZZINESS Verified 12/15/16 17:10 - Active Medications Active Medications: Current Medications Aspirin (Ecotrin (Ec)) 81 mg PO QHS [facility] Last Admin: 12/23/16 22:03 Dose: 81 mg Captopril (Capoten) 50 mg PO TID MIAH Last Admin: 12/24/16 14:57 Dose: 50 mg Cyclobenzaprine HCl (Flexeril) 10 mg PO TID PRN PRN Reason: MUSCLE SPASM Last Admin: 12/21/16 11:14 Dose: 10 mg Daptomycin (Cubicin) 800 mg IV 1500 MIAH Last Admin: 12/24/16 14:49 Dose: 800 mg Duloxetine HCl (Cymbalta) 30 mg PO QHS [facility] Last Admin: 12/23/16 22:03 Dose: 30 mg Heparin Sodium (Porcine) () 500 unit IVP 1530 [facility] Last Admin: 12/24/16 14:53 Dose: 500 unit Loratadine (Claritin) 5 mg PO DAILY PRN PRN Reason: ALLERGIES Meloxicam (Mobic) 15 mg PO DAILY [facility] Last Admin: 12/24/16 10:41 Dose: 15 mg Metformin HCl (Glucophage Xr) 500 mg PO DAILY [facility] Last Admin: 12/24/16 10:42 Dose: 500 mg Oxycodone/Acetaminophen (Percocet 10-325 Mg Tablet) 1 each PO Q4H PRN PRN Reason: Analgesia Last Admin: 12/24/16 13:43 Dose: 1 each Pantoprazole Sodium (Protonix) 40 mg PO QHS [facility] Last Admin: 12/23/16 22:03 Dose: 40 mg Patient Own Med: (Tolterodine 2 Mg) 1 each PO QHS [facility] Last Admin: 12/23/16 22:03 Dose: 1 each Simvastatin (Zocor) 10 mg PO QHS [facility] Last Admin: 12/23/16 22:03 Dose: 10 mg Sodium Chloride () 10 ml IVP 1500 [facility] Last Admin: 12/24/16 14:49 Dose: 10 ml Tramadol HCl (Ultram) 100 mg PO Q6H PRN PRN Reason: Pain - Moderate (5-7) Last Admin: 12/24/16 10:51 Dose: 100 mg Triamterene/HCTZ (Dyazide) 1 udcap PO DAILY [facility] Last Admin: 12/24/16 10:42 Dose: 1 udcap Vitamin D (Vitamin D3) 5,000 unit PO DAILY [facility] Last Admin: 12/24/16 10:41 Dose: 5,000 unit Physical Exam - Vital Signs Vital Signs: Vital Signs - Last 24 Hrs Temp Pulse Resp BP Pulse Ox 12/24/16 14:58 90 139/52 12/24/16 10:00 98.4 F 84 12 113/42 98 12/23/16 20:00 98.4 F 80 18 111/56 98 - General General Appearance: Alert, Oriented x3, Cooperative, No acute distress - Head Head exam: Normal inspection - Eye Eye exam: Normal appearance, PERRL Pupils: Normal accommodation - ENT ENT exam: Normal exam, Mucous membranes moist, Normal external ear exam, Normal orophraynx, TM's normal bilaterally Ear exam: Normal external inspection. negative: External canal tenderness Nasal Exam: Normal inspection. negative: Discharge, Sinus tenderness Mouth exam: Normal external inspection, Tongue normal Teeth exam: Normal inspection. negative: Dental caries Throat exam: Normal inspection. negative: Tonsillar erythema, Tonsillar exudate - Neck Neck exam: Normal inspection, Full ROM. negative: Tenderness - Respiratory Respiratory exam: Normal lung sounds bilaterally. negative: Respiratory distress - Cardiovascular Cardiovascular Exam: Regular rate, Normal rhythm, Normal heart sounds - GI/Abdominal GI/Abdominal exam: Soft, Normal bowel sounds. negative: Tenderness - Rectal Rectal exam: Deferred - exam: Deferred - Extremities Extremities exam: Normal inspection, Full ROM, Normal capillary refill. negative: Tenderness - Back Back exam: Reports: Normal inspection, Full ROM. Denies: Muscle spasm, Rash noted, Tenderness - Neurological Neurological exam: Alert, Normal gait, Oriented X3, Reflexes normal - Psychiatric Psychiatric exam: Normal affect, Normal mood - Skin Skin exam: Dry, Intact, Normal color, Warm H&P Results - Labs Result Diagrams: 12/25/16 06:00 12/19/16 12:24 Discharge Potential - Discharge Needs Community Services Used Prior to Admission: None Patient Discharge Plan Description: Return Home Community Services Needed at Discharge: Occupational Therapy Discharge Needs Comment: Pt. hopes to return home after completion of IV antibiotics. Plan - Swing Bed Certification Initial Certification Due: 12/15/16 14 Day Re-Cert Due: 12/29/16 44 Day Re-Cert Due: 01/28/17 74 Day Re-Cert Due: 02/27/17 - Detailed Diagnosis and Plan (1) Physical deconditioning Current Visit: Yes Status: Acute Base Code: R53.81 - OTHER MALAISE (2) Infected prosthetic knee joint Current Visit: Yes Status: Acute Base Code: T84.59XA - INFECT/INFLM REACTION DUE TO OTH INTERNAL JOINT PROSTH, INIT; Z96.659 - PRESENCE OF UNSPECIFIED ARTIFICIAL KNEE JOINT (3) Hypertension Current Visit: Yes Status: Acute Base Code: I10 - ESSENTIAL (PRIMARY) HYPERTENSION (4) Hypercholesterolemia Current Visit: Yes Status: Acute Base Code: E78.00 - PURE HYPERCHOLESTEROLEMIA, UNSPECIFIED (5) Diabetes mellitus type 2 in obese Current Visit: Yes Status: Acute Base Code: E11.69 - TYPE 2 DIABETES MELLITUS WITH OTHER SPECIFIED COMPLICATION; E66.9 - OBESITY, UNSPECIFIED (6) Osteoarthritis Current Visit: Yes Status: Acute Base Code: M19.90 - UNSPECIFIED OSTEOARTHRITIS, UNSPECIFIED SITE
[2016-12-24] MEDS: ONDANSETRON 4 MG ODT TABLET SL PRN (18:21)
[2016-12-24] MEDS: CYCLOBENZAPRINE 10MG TABLET PO PRN (18:21)
[2016-12-24] MEDS: DULOXETINE HCL 30 MG CAPSULE.DR PO SCH (21:17)
[2016-12-24] MEDS: PANTOPRAZOLE SODIUM 40 MG TABLET PO SCH (21:18)
[2016-12-24] MEDS: ASPIRIN 81 MG TABEC PO SCH (21:18)
[2016-12-24] MEDS: SIMVASTATIN 10MG TABLET PO SCH (21:19)
[2016-12-24] MEDS: TOLTERODINE 2 MG PO SCH (21:25)
[2016-12-25 06:06] LABS: BASO % 0.4 % (0-6); EOS % 3.7 % (0-6); GRAN % 78.6 % (47-80); HEMATOCRIT 26.1 % (35.0-47.0); HEMOGLOBIN 7.6 gm/dl (11.6-16.0); LYMPH % 9.8 % (16-45); MEAN CELL VOLUME 69.8 fl (81-97); MEAN CORPUSCULAR HEMOGLOBIN 20.3 pg (27-33); MEAN CORPUSCULAR HGB CONC 29.1 g/dl (32-36); MEAN PLATELET VOLUME 9.4 fl (7.4-10.4); MONO % 7.5 % (0-9); PLATELET COUNT 327 K/uL (130-400); RED BLOOD COUNT 3.74 M/uL (3.80-5.40); RED CELL DISTRIBUTION WIDTH 17.8 % (11.5-14.5); WHITE BLOOD COUNT W/O DIFF 11.9 K/uL (4.2-12.2)
[2016-12-25 06:17] LABS: ALB/GLOB RATIO 1.3 (1.1-1.8); ALBUMIN 3.7 g/dL (4.0-5.0); ALKALINE PHOSPHATASE 114 U/L (35-104); ALT/SGPT 12 U/L (<33); AST/SGOT 15 U/L (10.0-35.0); BLOOD UREA NITROGEN 20 mg/dL (8-23); C-REACTIVE PROTEIN 4.5 mg/L (<5.0); CREATINE PHOSPHOKINASE 70 U/L (26-192); CREATININE 0.7 mg/dL (0.5-0.9); EST GLOMERULAR FILTRATION RATE > 60 mL/min; GLUCOSE,RANDOM 151 mg/dL (74-109); TOTAL PROTEIN 6.5 g/dL (6.6-8.7)
[2016-12-25] MEDS: OXYCODONE/APAP 10MG-325MG TABLET PO PRN ×3 (06:24→21:45)
[2016-12-25 06:46] LABS: ERYTHROCYTE SEDIMENTATION RATE 27 mm/hr (0-30)
[2016-12-25] MEDS ORDERED: IPRATROPIUM/ALBUTEROL (0.5MG/3MG) NEB INH PRN (09:29)
[2016-12-25] MEDS: CAPTOPRIL 12.5 MG TABLET PO SCH ×3 (11:18→21:46)
[2016-12-25] MEDS: CHOLECALCIFEROL 1,000 UNIT TABLET PO SCH (11:19)
[2016-12-25] MEDS: TRIAMTERENE 37.5/HCTZ 25 CAPSULE PO SCH (11:19)
[2016-12-25] MEDS: MELOXICAM 7.5 MG TABLET PO SCH (11:19)
[2016-12-25] MEDS: METFORMIN ER HCL 500 MG TAB.ER.24H PO SCH (11:19)
[2016-12-25] MEDS ORDERED: FUROSEMIDE 20 MG TABLET PO ONE (11:42)
--- NOTE | 2016-12-25 12:20 | RADIOLOGY REPORT ---
EXAM: CTA OF THE CHEST HISTORY: HYPOXIA. TECHNIQUE: CTA of the chest was performed following IV administration of 70 ml of Omnipaque 350 contrast. Axial images were obtained with coronal and sagittal reconstructions. Comparison: None. FINDINGS: The mediastinal vasculature enhances normally. There is no intraluminal filling defect to suggest pulmonary embolus. Cardiomegaly. Nonenlarged mediastinal and hilar lymph nodes. Negative for thoracic aortic aneurysm or dissection. There are small bilateral pleural effusions. The osseous structures of the thorax are grossly intact. Limited evaluation of the upper abdomen demonstrates fatty infiltrative change to the liver. There is a nonspecific left adrenal nodule measuring 1.8 x 1.2 cm. No pneumothorax. The visualized airways are patent. Ground glass opacifies bilaterally with prominence of the pulmonary interstitium. Findings likely relate to pulmonary edema with pneumonitis not entirely excluded. IMPRESSION: 1. NEGATIVE FOR THORACIC AORTIC ANEURYSM OR DISSECTION. NEGATIVE FOR PULMONARY EMBOLUS. 2. CARDIOMEGALY. PROMINENCE OF THE PULMONARY INTERSTITIUM WITH GROUND GLASS OPACITIES BILATERALLY LIKELY REFLECTING A COMPONENT OF ALVEOLAR EDEMA. PNEUMONITIS WOULD BE DIFFICULT TO EXCLUDE ENTIRELY. SMALL BILATERAL PLEURAL EFFUSIONS. 3. LEFT ADRENAL NODULE. THIS COULD FURTHER BE ASSESSED NONEMERGENTLY WITH DEDICATED MRI. JOB NUMBER: [id number] [facility]
[2016-12-25] MEDS: 0.9 % SODIUM CHLORIDE 10ML SYR IVP SCH (14:55)
[2016-12-25] MEDS: DAPTOMYCIN 500 MG/VIAL IV SCH (14:55)
[2016-12-25] MEDS: HEPARIN SODIUM FLUSH 100 UNITS/ML SYR 5ML IVP SCH (14:57)
--- NOTE | 2016-12-25 15:49 | Occupational Therapy Tx Note ---
Occupational Therapy Tx Note - Treatment Note Tolerated: Poor Total Time Spent With Patient: 25 Occupational Therapy Treatment Note: Detail (S: Pt. declined to do any ADL activities, get up from chair d/t severe R leg pain and feeling poorly. Nursing just administered pain meds prior to therapy. Pt. was lethargic and briefly dozed off several times throughout therapy session. Pt. stated she was trying to stay awake so she could sleep better tonight. O: Pt. educ. provided (per pt request) to perform HEP of bilateral hand theraputty exercises for strengthening d/t deconditioning from arthritis. Yellow (soft) putty and visual handouts provided. Bilateral wrist exercises 2x10, 2lb. free weights: wrist ext , flex, ulnar/radial dev, and sup/pronation. A: Pt's illness and pain is causing poor activity tolerance/endurance, and pt. may be drowsy d/t medications , resulting in an abbreviated tx session. Pt. required multiple rest breaks between exercises. P: Cont. OT services to address ADL goals.) Occupational Therapy Problem List: Detail (1. Decreased endurance needed for ADLs/IADLs. 2. Decreased Ind with total body dressing. 3. Decreased Ind with showering/bathing.) Occupational Therapy Goals: 1. Pt will be Ind with total body dressing using adaptive equipment. 2. Pt will be Ind with showering and/or sponge bathing at sink. 3. Pt will demonstrate improved endurance to allow safe and Ind return home. Prognosis: Moderate Occupational Therapy Plan: OT 2-4 days per week to address endurance, self cares and functional mobility to allow safe and Ind return home.
[2016-12-25] MEDS: DULOXETINE HCL 30 MG CAPSULE.DR PO SCH (21:44)
[2016-12-25] MEDS: PANTOPRAZOLE SODIUM 40 MG TABLET PO SCH (21:45)
[2016-12-25] MEDS: SIMVASTATIN 10MG TABLET PO SCH (21:45)
[2016-12-25] MEDS: ASPIRIN 81 MG TABEC PO SCH (21:45)
[2016-12-25] MEDS: TOLTERODINE 2 MG PO SCH (21:46)
[2016-12-26 06:20] LABS: BLOOD UREA NITROGEN 21 mg/dL (8-23); CREATININE 0.8 mg/dL (0.5-0.9); EST GLOMERULAR FILTRATION RATE > 60 mL/min; GLUCOSE,RANDOM 126 mg/dL (74-109)
[2016-12-26] MEDS: CHOLECALCIFEROL 1,000 UNIT TABLET PO SCH (10:47)
[2016-12-26] MEDS: OXYCODONE/APAP 10MG-325MG TABLET PO PRN ×2 (10:47→22:31)
[2016-12-26] MEDS: CAPTOPRIL 12.5 MG TABLET PO SCH ×3 (10:50→22:20)
[2016-12-26] MEDS: MELOXICAM 7.5 MG TABLET PO SCH (10:50)
[2016-12-26] MEDS: FUROSEMIDE 20 MG TABLET PO SCH (10:51)
[2016-12-26] MEDS: METFORMIN ER HCL 500 MG TAB.ER.24H PO SCH (10:51)
[2016-12-26] MEDS: CEFTRIAXONE SODIUM 1 GM in 0.9 % SODIUM CHLORIDE 100ML 100 ML IVPB SCH ×2 (11:09→22:21)
[2016-12-26] MEDS: 0.9 % SODIUM CHLORIDE 10ML SYR IVP SCH ×2 (12:41→14:53)
[2016-12-26] MEDS: HEPARIN SODIUM FLUSH 100 UNITS/ML SYR 5ML IVP SCH ×2 (12:41→14:54)
[2016-12-26] MEDS: DAPTOMYCIN 500 MG/VIAL IV SCH (14:53)
[2016-12-26] MEDS: TRAMADOL HCL 50 MG TABLET PO PRN (14:59)
[2016-12-26] MEDS ORDERED: ACETAMINOPHEN 325 MG TAB PO PRN (20:19)
[2016-12-26] MEDS: PANTOPRAZOLE SODIUM 40 MG TABLET PO SCH (22:19)
[2016-12-26] MEDS: DULOXETINE HCL 30 MG CAPSULE.DR PO SCH (22:20)
[2016-12-26] MEDS: ASPIRIN 81 MG TABEC PO SCH (22:20)
[2016-12-26] MEDS: TOLTERODINE 2 MG PO SCH (22:20)
[2016-12-26] MEDS: SIMVASTATIN 10MG TABLET PO SCH (22:20)
[2016-12-27] MEDS: FERROUS SULFATE 325 MG TAB PO SCH (10:05)
[2016-12-27] MEDS: OXYCODONE/APAP 10MG-325MG TABLET PO PRN ×2 (10:05→19:31)
[2016-12-27] MEDS: FUROSEMIDE 20 MG TABLET PO SCH (10:05)
[2016-12-27] MEDS: CHOLECALCIFEROL 1,000 UNIT TABLET PO SCH (10:05)
[2016-12-27] MEDS: METFORMIN ER HCL 500 MG TAB.ER.24H PO SCH (10:06)
[2016-12-27] MEDS: MELOXICAM 7.5 MG TABLET PO SCH (10:06)
[2016-12-27] MEDS: ASCORBIC ACID 500 MG TAB PO SCH (10:06)
[2016-12-27] MEDS: CAPTOPRIL 12.5 MG TABLET PO SCH ×3 (10:06→21:51)
[2016-12-27] MEDS: CEFTRIAXONE SODIUM 1 GM in 0.9 % SODIUM CHLORIDE 100ML 100 ML IVPB SCH ×2 (12:22→22:27)
[2016-12-27] MEDS: 0.9 % SODIUM CHLORIDE 10ML SYR IVP SCH ×2 (13:20→15:12)
[2016-12-27] MEDS: HEPARIN SODIUM FLUSH 100 UNITS/ML SYR 5ML IVP SCH ×2 (13:20→15:12)
[2016-12-27] MEDS: DAPTOMYCIN 500 MG/VIAL IV SCH (15:12)
[2016-12-27] MEDS: TRAMADOL HCL 50 MG TABLET PO PRN (15:13)
[2016-12-27] MEDS: ONDANSETRON 4 MG ODT TABLET SL PRN (19:33)
[2016-12-27] MEDS: SIMVASTATIN 10MG TABLET PO SCH (21:51)
[2016-12-27] MEDS: ASPIRIN 81 MG TABEC PO SCH (21:51)
[2016-12-27] MEDS: DULOXETINE HCL 30 MG CAPSULE.DR PO SCH (21:51)
[2016-12-27] MEDS: PANTOPRAZOLE SODIUM 40 MG TABLET PO SCH (21:51)
[2016-12-27] MEDS: TOLTERODINE 2 MG PO SCH (21:52)
[2016-12-28] MEDS: CAPTOPRIL 12.5 MG TABLET PO SCH ×3 (09:37→22:53)
[2016-12-28] MEDS: FERROUS SULFATE 325 MG TAB PO SCH (09:38)
[2016-12-28] MEDS: METFORMIN ER HCL 500 MG TAB.ER.24H PO SCH (09:38)
[2016-12-28] MEDS: ASCORBIC ACID 500 MG TAB PO SCH (09:39)
[2016-12-28] MEDS: FUROSEMIDE 20 MG TABLET PO SCH (09:39)
[2016-12-28] MEDS: MELOXICAM 7.5 MG TABLET PO SCH (09:39)
[2016-12-28] MEDS: CHOLECALCIFEROL 1,000 UNIT TABLET PO SCH (09:39)
[2016-12-28] MEDS: TRAMADOL HCL 50 MG TABLET PO PRN (09:43)
[2016-12-28] MEDS: CEFTRIAXONE SODIUM 1 GM in 0.9 % SODIUM CHLORIDE 100ML 100 ML IVPB SCH (12:10)
[2016-12-28] MEDS ORDERED: ENOXAPARIN 40 MG/0.4 ML SYR SQ SCH (13:00)
--- NOTE | 2016-12-28 13:29 | Physical Therapy Tx Note ---
Physical Therapy Tx Note - Treatment Note Physical Therapy Tx Note: Detail (Went to see patient and X-ray arrived to take patient for testing. Unable to see patient at this time.) Physical Therapy Problem List: Detail (1) Unable to maintain PWB status on R LE 2) Decreased ambulation distance 3) Nonambulatory on stairs) Physical Therapy Goals: 1) The patient will ambulate with wheeled walker a distance of 100 feet x 1, PWB on the R LE. 2) Ambulation on stairs with supervision. 3) The patient will be able to safely assess bathroom at home with use of alternate assistive device ( not walker). Physical Therapy Plan: PT 3 to 4 times a week M-F for gait training on levels and stairs and functional acitivities.
--- NOTE | 2016-12-28 14:35 | RADIOLOGY REPORT ---
EXAM: CHEST, TWO VIEWS HISTORY: ACUTE SHORTNESS OF BREATH. NO FEVER. HYPOXIA. TECHNIQUE: Two views of the chest were obtained. Comparison: Chest CT 12/25/16. FINDINGS: Right PICC line present. There are rounded opacities in the upper lung bajwa not seen previously. Mild prominence and elevation of the pulmonary vascular markings. The cardiac silhouette is moderately enlarged. The diaphragm is unremarkable. Moderate levoconvex curvature of the thoracic spine. Osteopenia. IMPRESSION: MILD INTERSTITIAL PULMONARY EDEMA SIMILAR TO PRIOR CHEST CT. THERE ARE NEW ROUNDED OPACITIES IN THE UPPER LUNGS WHICH COULD RELATE TO PULMONARY EDEMA OR PNEUMONITIS. JOB NUMBER: [id number] [facility]
[2016-12-28 14:59] LABS: ALB/GLOB RATIO 1.2 (1.1-1.8); ALBUMIN 3.4 g/dL (4.0-5.0); ALKALINE PHOSPHATASE 118 U/L (35-104); ALT/SGPT 15 U/L (<33); AST/SGOT 17 U/L (10.0-35.0); BLOOD UREA NITROGEN 14 mg/dL (8-23); CREATINE PHOSPHOKINASE 55 U/L (26-192); CREATININE 0.7 mg/dL (0.5-0.9); EST GLOMERULAR FILTRATION RATE > 60 mL/min; GLUCOSE,RANDOM 166 mg/dL (74-109); TOTAL PROTEIN 6.2 g/dL (6.6-8.7)
[2016-12-28 15:02] LABS: BASO % 0.4 % (0-6); EOS % 5.6 % (0-6); GRAN % 73.8 % (47-80); HEMATOCRIT 23.5 % (35.0-47.0); HEMOGLOBIN 7.1 gm/dl (11.6-16.0); LYMPH % 8.7 % (16-45); MEAN PLATELET VOLUME 9.9 fl (7.4-10.4); MONO % 11.5 % (0-9); PLATELET COUNT 316 K/uL (130-400); RED BLOOD COUNT 3.43 M/uL (3.80-5.40); RED CELL DISTRIBUTION WIDTH 17.4 % (11.5-14.5); WHITE BLOOD COUNT W/O DIFF 11.2 K/uL (4.2-12.2)
[2016-12-28] MEDS: DAPTOMYCIN 500 MG/VIAL IV SCH (15:09)
[2016-12-28] MEDS: 0.9 % SODIUM CHLORIDE 10ML SYR IVP SCH (15:09)
[2016-12-28] MEDS: HEPARIN SODIUM FLUSH 100 UNITS/ML SYR 5ML IVP SCH (15:10)
[2016-12-28 15:20] LABS: MEAN CORPUSCULAR HEMOGLOBIN 20.6 pg (27-33)
[2016-12-28 15:21] LABS: MEAN CELL VOLUME 68.5 fl (81-97); MEAN CORPUSCULAR HGB CONC 30.2 g/dl (32-36)
[2016-12-28] MEDS: OXYCODONE/APAP 10MG-325MG TABLET PO PRN (20:41)
[2016-12-28] MEDS: TOLTERODINE 2 MG PO SCH (22:53)
[2016-12-28] MEDS: PANTOPRAZOLE SODIUM 40 MG TABLET PO SCH (22:53)
[2016-12-28] MEDS: ASPIRIN 81 MG TABEC PO SCH (22:53)
[2016-12-28] MEDS: DULOXETINE HCL 30 MG CAPSULE.DR PO SCH (22:53)
[2016-12-28] MEDS: SIMVASTATIN 10MG TABLET PO SCH (22:53)
[2016-12-28] MEDS: CEFTRIAXONE SODIUM 1 GM in 0.9% SODIUM CHLORIDE 50ML 50 ML IVPB SCH (22:54)
[2016-12-29] MEDS: OXYCODONE/APAP 10MG-325MG TABLET PO PRN (04:10)
--- NOTE | 2016-12-29 07:28 | US VENOUS DOPPLER REPORT ---
EXAM: BILATERAL LOWER EXTREMITY VENOUS DOPPLER ULTRASOUND HISTORY: SHORTNESS OF BREATH. TECHNIQUE: Real-time plummer scale sonographic imaging of the lower extremities was performed with Duplex Doppler and spectral analysis. Comparison: None. FINDINGS: There is normal color flow and compressibility in the following vessels: Right greater saphenous vein, right common femoral vein, right superficial femoral vein, right profunda femoral vein, right popliteal vein, right peroneal vein, and right posterior tibial vein. The anterior tibial vein is not seen likely due to poor penetration. Subcutaneous edema right calf. Normal flow and compressibility of the left greater saphenous vein, left common femoral vein, left profunda femoral vein, left popliteal vein, left posterior tibial vein, and left anterior tibial vein. Peroneal vein not seen likely due to poor penetration. Subcutaneous edema. IMPRESSION: 1. NO EVIDENCE OF LOWER EXTREMITY DVT. 2. LOWER EXTREMITY EDEMA ABOVE. JOB NUMBER: [id number] [facility]
[2016-12-29] MEDS: ASCORBIC ACID 500 MG TAB PO SCH (09:20)
[2016-12-29] MEDS: FUROSEMIDE 20 MG TABLET PO SCH (09:20)
[2016-12-29] MEDS: FERROUS SULFATE 325 MG TAB PO SCH (09:20)
[2016-12-29] MEDS: MELOXICAM 7.5 MG TABLET PO SCH (09:20)
[2016-12-29] MEDS: CAPTOPRIL 12.5 MG TABLET PO SCH ×3 (09:20→22:55)
[2016-12-29] MEDS: METFORMIN ER HCL 500 MG TAB.ER.24H PO SCH (09:20)
[2016-12-29] MEDS: CHOLECALCIFEROL 1,000 UNIT TABLET PO SCH (09:21)
[2016-12-29] MEDS: CEFTRIAXONE SODIUM 1 GM in 0.9% SODIUM CHLORIDE 50ML 50 ML IVPB SCH (09:26)
--- NOTE | 2016-12-29 12:06 | Physical Therapy Tx Note ---
Physical Therapy Tx Note - Treatment Note Tolerated: Good (The patient was sitting up in a chair when PT arrived. The patient complained of R anterior shoulder pain. Tightness was noted in R anterior deltoid with tenderness to palpation at the insertion site. PT completed MFR/STM to R anterior deltoid . The patient transferred independently from chair to bed and was independent with sit to supine. MHP was placed on R shoulder for 20 minutes. Patient tolerated the heat well.) Total Time Spent With Patient: 15 Physical Therapy Problem List: Detail (1) Unable to maintain PWB status on R LE 2) Decreased ambulation distance 3) Nonambulatory on stairs) Physical Therapy Goals: 1) The patient will ambulate with wheeled walker a distance of 100 feet x 1, PWB on the R LE. 2) Ambulation on stairs with supervision. 3) The patient will be able to safely assess bathroom at home with use of alternate assistive device ( not walker). Physical Therapy Plan: PT 3 to 4 times a week M-F for gait training on levels and stairs and functional acitivities.
--- NOTE | 2016-12-29 14:20 | Occupational Therapy Tx Note ---
Occupational Therapy Tx Note - Treatment Note Tolerated: Fair Total Time Spent With Patient: 35 (ther activity) Occupational Therapy Treatment Note: Detail (S: Pt reports feeling better this afternoon, she would like to walk. O: Sit to stand Ind and amb to toilet with 2 wheeled walker Ind, completed toileting Indly. Pt amb 125 feet with 2 wheeled walker and SBA. Pt required 2 short rest breaks due to right shoulder pain and fatigue. Stand to sit Indly. MTT/MFR and trigger point release to right shoulder, upper arm and pec region. Hot pack to right shoulder x 20 min ( HP time not included in total treatment time.) A: Right UE pain limiting functional mobility, Ind with toileting.) Occupational Therapy Problem List: Detail (1. Decreased endurance needed for ADLs/IADLs. 2. Decreased Ind with total body dressing. 3. Decreased Ind with showering/bathing.) Occupational Therapy Goals: 1. Pt will be Ind with total body dressing using adaptive equipment. 2. Pt will be Ind with showering and/or sponge bathing at sink. 3. Pt will demonstrate improved endurance to allow safe and Ind return home. Prognosis: Good Occupational Therapy Plan: OT 2-4 days per week to address endurance, self cares and functional mobility to allow safe and Ind return home.
[2016-12-29] MEDS: HEPARIN SODIUM FLUSH 100 UNITS/ML SYR 5ML IVP SCH ×2 (15:19→17:36)
[2016-12-29] MEDS: DAPTOMYCIN 500 MG/VIAL IV SCH (15:19)
[2016-12-29] MEDS: 0.9 % SODIUM CHLORIDE 10ML SYR IVP SCH ×2 (15:19→17:36)
[2016-12-29] MEDS: CEFEPIME HCL 2 GM in 0.9% SODIUM CHLORIDE 50ML 50 ML IVPB SCH ×2 (16:53→22:59)
[2016-12-29] MEDS: TRAMADOL HCL 50 MG TABLET PO PRN (16:54)
[2016-12-29] MEDS: DULOXETINE HCL 30 MG CAPSULE.DR PO SCH (22:55)
[2016-12-29] MEDS: SIMVASTATIN 10MG TABLET PO SCH (22:55)
[2016-12-29] MEDS: PANTOPRAZOLE SODIUM 40 MG TABLET PO SCH (22:56)
[2016-12-29] MEDS: ASPIRIN 81 MG TABEC PO SCH (22:56)
[2016-12-29] MEDS: TOLTERODINE 2 MG PO SCH (22:57)
[2016-12-30] MEDS: OXYCODONE/APAP 10MG-325MG TABLET PO PRN ×3 (03:56→15:25)
[2016-12-30] MEDS: CEFEPIME HCL 2 GM in 0.9% SODIUM CHLORIDE 50ML 50 ML IVPB SCH ×3 (07:42→22:49)
[2016-12-30] MEDS: 0.9 % SODIUM CHLORIDE 10ML SYR IVP SCH ×4 (07:45→17:07)
[2016-12-30] MEDS: CAPTOPRIL 12.5 MG TABLET PO SCH ×3 (09:51→22:48)
[2016-12-30] MEDS: MELOXICAM 7.5 MG TABLET PO SCH (09:51)
[2016-12-30] MEDS: FERROUS SULFATE 325 MG TAB PO SCH (09:51)
[2016-12-30] MEDS: FUROSEMIDE 20 MG TABLET PO SCH (09:51)
[2016-12-30] MEDS: CHOLECALCIFEROL 1,000 UNIT TABLET PO SCH (09:51)
[2016-12-30] MEDS: ASCORBIC ACID 500 MG TAB PO SCH (09:52)
[2016-12-30] MEDS: METFORMIN ER HCL 500 MG TAB.ER.24H PO SCH (09:52)
--- NOTE | 2016-12-30 15:17 | Occupational Therapy Tx Note ---
Occupational Therapy Tx Note - Treatment Note Tolerated: Good Total Time Spent With Patient: 65 (ADL) Occupational Therapy Treatment Note: Detail (S: Pt up in chair, ready for shower. O: Sit to stand and amb to toilet with 2 wheeled walker Indly. Toileted Indly. Amb to shower bench with walker Indly. Doffed gown, briefs and right leg brace Indly. Pt c/o shortness of breath and oxygen was turned up from 1 liter to 3 liters. Reviewed pursed lip breathing. Pt completed showering in sitting with hand held shower Indly. Dried self with assist for right foot. Donned bra Indly. Donned right leg brace Indly with moderate difficulty and required short rest breaks due to shortness of breath. Sit to stand and amb to chair with walker Indly. Donned briefs and dress Indly with use of media services director. Brace adjusted and tightened per therapist as pt unable. Amb to EOB and pt sit to supine Indly, scooted up in bed Indly. Oxygen turned back to 1 liter. A: Ind with showering in sitting, Ind with dressing, assist needed for correct positioning of right leg brace, shortness of breath cont with activity.) Occupational Therapy Problem List: Detail (1. Decreased endurance needed for ADLs/IADLs. 2. Decreased Ind with total body dressing. 3. Decreased Ind with showering/bathing.) Occupational Therapy Goals: 1. Pt will be Ind with total body dressing using adaptive equipment. 2. Pt will be Ind with showering and/or sponge bathing at sink. 3. Pt will demonstrate improved endurance to allow safe and Ind return home. Prognosis: Good Occupational Therapy Plan: OT 2-4 days per week to address endurance, self cares and functional mobility to allow safe and Ind return home.
[2016-12-30] MEDS: DAPTOMYCIN 500 MG/VIAL IV SCH (15:31)
[2016-12-30] MEDS: HEPARIN SODIUM FLUSH 100 UNITS/ML SYR 5ML IVP SCH ×2 (15:31→17:07)
[2016-12-30] MEDS: ASPIRIN 81 MG TABEC PO SCH (22:48)
[2016-12-30] MEDS: TOLTERODINE 2 MG PO SCH (22:48)
[2016-12-30] MEDS: PANTOPRAZOLE SODIUM 40 MG TABLET PO SCH (22:48)
[2016-12-30] MEDS: SIMVASTATIN 10MG TABLET PO SCH (22:48)
[2016-12-30] MEDS: DULOXETINE HCL 30 MG CAPSULE.DR PO SCH (22:48)
[2016-12-31] MEDS: CEFEPIME HCL 2 GM in 0.9% SODIUM CHLORIDE 50ML 50 ML IVPB SCH ×2 (00:14→09:24)
[2016-12-31] MEDS: OXYCODONE/APAP 10MG-325MG TABLET PO PRN ×2 (05:14→21:27)
[2016-12-31] MEDS: CAPTOPRIL 12.5 MG TABLET PO SCH ×3 (09:24→21:24)
[2016-12-31] MEDS: FERROUS SULFATE 325 MG TAB PO SCH (09:25)
[2016-12-31] MEDS: METFORMIN ER HCL 500 MG TAB.ER.24H PO SCH (09:25)
[2016-12-31] MEDS: CHOLECALCIFEROL 1,000 UNIT TABLET PO SCH (09:26)
[2016-12-31] MEDS: FUROSEMIDE 20 MG TABLET PO SCH (09:26)
[2016-12-31] MEDS: MELOXICAM 7.5 MG TABLET PO SCH (09:26)
[2016-12-31] MEDS: ASCORBIC ACID 500 MG TAB PO SCH (09:26)
[2016-12-31] MEDS ORDERED: DIPHENHYDRAMINE HCL 25 MG CAPSULE PO PRN (11:13)
[2016-12-31] MEDS ORDERED: METHYLPREDNISOLONE PF 125MG/VIAL IVP ONE (11:15)
[2016-12-31] MEDS ORDERED: CEFTRIAXONE SODIUM 1 GM in 0.9 % SODIUM CHLORIDE 100ML 100 ML IVPB SCH (11:15)
[2016-12-31] MEDS ORDERED: MEROPENEM 1 GM in 0.9 % SODIUM CHLORIDE 100ML 100 ML IVPB ONE (12:30)
--- NOTE | 2016-12-31 14:21 | Physical Therapy Tx Note ---
Physical Therapy Tx Note - Treatment Note Tolerated: Other Total Time Spent With Patient: 5 Physical Therapy Tx Note: Detail (Pt in bed upon arrival, appeared uncomfortable , short of breath. Nrsg had just helped her back to bed due to not feeling well. States she had R shoulder pain when she awoke this morning at 5, had some heat applied to the shoulder, and has felt better in the shoulder since. States she has pneumonia. Nrsg confirms. No further treatment provided today.) Physical Therapy Problem List: Detail (1) Unable to maintain PWB status on R LE 2) Decreased ambulation distance 3) Nonambulatory on stairs) Physical Therapy Goals: 1) The patient will ambulate with wheeled walker a distance of 100 feet x 1, PWB on the R LE. 2) Ambulation on stairs with supervision. 3) The patient will be able to safely assess bathroom at home with use of alternate assistive device ( not walker). Prognosis: Good Physical Therapy Plan: PT 3 to 4 times a week M-F for gait training on levels and stairs and functional acitivities.
[2016-12-31] MEDS: DAPTOMYCIN 500 MG/VIAL IV SCH (14:28)
[2016-12-31] MEDS: 0.9 % SODIUM CHLORIDE 10ML SYR IVP SCH (14:28)
[2016-12-31] MEDS: HEPARIN SODIUM FLUSH 100 UNITS/ML SYR 5ML IVP SCH (14:29)
[2016-12-31] MEDS: ASPIRIN 81 MG TABEC PO SCH (21:23)
[2016-12-31] MEDS: DULOXETINE HCL 30 MG CAPSULE.DR PO SCH (21:23)
[2016-12-31] MEDS: PANTOPRAZOLE SODIUM 40 MG TABLET PO SCH (21:23)
[2016-12-31] MEDS: TOLTERODINE 2 MG PO SCH (21:24)
[2016-12-31] MEDS: SIMVASTATIN 10MG TABLET PO SCH (21:24)
[2016-12-31] MEDS: MEROPENEM 1 GM in 0.9 % SODIUM CHLORIDE 100ML 100 ML IVPB SCH (23:02)
[2017-01-01] MEDS: MEROPENEM 1 GM in 0.9 % SODIUM CHLORIDE 100ML 100 ML IVPB SCH ×3 (06:44→22:34)
[2017-01-01] MEDS: 0.9 % SODIUM CHLORIDE 10ML SYR IVP SCH ×2 (07:29→15:48)
[2017-01-01] MEDS: HEPARIN SODIUM FLUSH 100 UNITS/ML SYR 5ML IVP SCH ×2 (07:29→15:49)
[2017-01-01] MEDS: ASCORBIC ACID 500 MG TAB PO SCH (10:46)
[2017-01-01] MEDS: DOCUSATE SODIUM 100 MG CAPSULE PO SCH ×2 (10:47→22:29)
[2017-01-01] MEDS: MELOXICAM 7.5 MG TABLET PO SCH (10:47)
[2017-01-01] MEDS: FUROSEMIDE 20 MG TABLET PO SCH (10:47)
[2017-01-01] MEDS: FERROUS SULFATE 325 MG TAB PO SCH (10:47)
[2017-01-01] MEDS: CAPTOPRIL 12.5 MG TABLET PO SCH ×3 (10:47→22:28)
[2017-01-01] MEDS: METFORMIN ER HCL 500 MG TAB.ER.24H PO SCH (10:47)
[2017-01-01] MEDS: CHOLECALCIFEROL 1,000 UNIT TABLET PO SCH (10:47)
[2017-01-01] MEDS: MAGNESIUM HYDROXIDE 30 ML UDC PO PRN ×2 (10:48→17:01)
[2017-01-01] MEDS: OXYCODONE/APAP 10MG-325MG TABLET PO PRN (11:03)
--- NOTE | 2017-01-01 11:32 | Physical Therapy Tx Note ---
Physical Therapy Tx Note - Treatment Note Tolerated: Good Total Time Spent With Patient: 45 Physical Therapy Tx Note: Detail (Patient was seated on edge of bed upon CHECKOUT OPERATOR arrival. Patient states still not feeling well today, but wants to walk. Patient transferred sit to and from stand SBA x1. Patient ambulated 134 feet with wheeled walker SBA x1 with 2L portable oxygen. Patient transferred sit to and from reclined supine independently. Patient transferred sit to and from stand SBA x1. Patient peformed the following exercises x10 reps each: seated ankle pumps, L LAQ, L hamstring curls with red theraband, seated hip abduction with red theraband, seated isometric hip adduction, and seated L hip flexion. Patient reports increased right knee pain with ambulation. Patient displays decreased strength, endurance, and some shortness of breath with ambulation and seated LE exercises. Patient was left seated in chair on 2L oxygen with call light within reach.) Physical Therapy Problem List: Detail (1) Unable to maintain PWB status on R LE 2) Decreased ambulation distance 3) Nonambulatory on stairs) Physical Therapy Goals: 1) The patient will ambulate with wheeled walker a distance of 100 feet x 1, PWB on the R LE. 2) Ambulation on stairs with supervision. 3) The patient will be able to safely assess bathroom at home with use of alternate assistive device ( not walker). Prognosis: Good Physical Therapy Plan: PT 3 to 4 times a week M-F for gait training on levels and stairs and functional acitivities.
[2017-01-01] MEDS: DAPTOMYCIN 500 MG/VIAL IV SCH (15:48)
[2017-01-01] MEDS: ASPIRIN 81 MG TABEC PO SCH (22:28)
[2017-01-01] MEDS: DULOXETINE HCL 30 MG CAPSULE.DR PO SCH (22:28)
[2017-01-01] MEDS: PANTOPRAZOLE SODIUM 40 MG TABLET PO SCH (22:28)
[2017-01-01] MEDS: SIMVASTATIN 10MG TABLET PO SCH (22:28)
[2017-01-01] MEDS: TOLTERODINE 2 MG PO SCH (22:29)
[2017-01-02] MEDS: OXYCODONE/APAP 10MG-325MG TABLET PO PRN ×3 (04:57→22:22)
[2017-01-02] MEDS: MEROPENEM 1 GM in 0.9 % SODIUM CHLORIDE 100ML 100 ML IVPB SCH ×3 (06:29→22:30)
[2017-01-02] MEDS: FUROSEMIDE 20 MG TABLET PO SCH (11:19)
[2017-01-02] MEDS: CAPTOPRIL 12.5 MG TABLET PO SCH ×3 (11:20→22:23)
[2017-01-02] MEDS: METFORMIN ER HCL 500 MG TAB.ER.24H PO SCH (11:21)
[2017-01-02] MEDS: DOCUSATE SODIUM 100 MG CAPSULE PO SCH ×2 (11:21→22:22)
[2017-01-02] MEDS: FERROUS SULFATE 325 MG TAB PO SCH (11:22)
[2017-01-02] MEDS: ASCORBIC ACID 500 MG TAB PO SCH (11:22)
[2017-01-02] MEDS: MELOXICAM 7.5 MG TABLET PO SCH (11:22)
[2017-01-02] MEDS: CHOLECALCIFEROL 1,000 UNIT TABLET PO SCH (11:24)
[2017-01-02] MEDS: DAPTOMYCIN 500 MG/VIAL IV SCH (15:33)
[2017-01-02] MEDS: 0.9 % SODIUM CHLORIDE 10ML SYR IVP SCH (15:33)
[2017-01-02] MEDS: HEPARIN SODIUM FLUSH 100 UNITS/ML SYR 5ML IVP SCH (16:22)
[2017-01-02] MEDS ORDERED: DIPHENHYDRAMINE HCL 25 MG CAPSULE PO ONE (21:28)
[2017-01-02] MEDS: IPRATROPIUM BR 0.02% NEB (0.5MG) INH PRN (21:48)
[2017-01-02] MEDS: SIMVASTATIN 10MG TABLET PO SCH (22:22)
[2017-01-02] MEDS: ASPIRIN 81 MG TABEC PO SCH (22:22)
[2017-01-02] MEDS: TOLTERODINE 2 MG PO SCH (22:23)
[2017-01-02] MEDS: PANTOPRAZOLE SODIUM 40 MG TABLET PO SCH (22:23)
[2017-01-02] MEDS: DULOXETINE HCL 30 MG CAPSULE.DR PO SCH (22:24)
[2017-01-03] MEDS: MEROPENEM 1 GM in 0.9 % SODIUM CHLORIDE 100ML 100 ML IVPB SCH ×3 (06:31→22:31)
[2017-01-03] MEDS: OXYCODONE/APAP 10MG-325MG TABLET PO PRN ×3 (06:32→16:04)
[2017-01-03] MEDS: METFORMIN ER HCL 500 MG TAB.ER.24H PO SCH (09:12)
[2017-01-03] MEDS: MELOXICAM 7.5 MG TABLET PO SCH (09:12)
[2017-01-03] MEDS: DOCUSATE SODIUM 100 MG CAPSULE PO SCH ×2 (09:13→21:51)
[2017-01-03] MEDS: CAPTOPRIL 12.5 MG TABLET PO SCH ×3 (09:13→21:52)
[2017-01-03] MEDS: ASCORBIC ACID 500 MG TAB PO SCH (09:13)
[2017-01-03] MEDS: FERROUS SULFATE 325 MG TAB PO SCH (09:13)
[2017-01-03] MEDS: CHOLECALCIFEROL 1,000 UNIT TABLET PO SCH (09:14)
[2017-01-03] MEDS: FUROSEMIDE 20 MG TABLET PO SCH (09:16)
[2017-01-03] MEDS: TRAMADOL HCL 50 MG TABLET PO PRN ×2 (10:35→21:51)
[2017-01-03] MEDS: DAPTOMYCIN 500 MG/VIAL IV SCH (15:57)
[2017-01-03] MEDS: 0.9 % SODIUM CHLORIDE 10ML SYR IVP SCH (15:58)
[2017-01-03] MEDS: HEPARIN SODIUM FLUSH 100 UNITS/ML SYR 5ML IVP SCH ×2 (16:50→16:51)
[2017-01-03] MEDS: ASPIRIN 81 MG TABEC PO SCH (21:51)
[2017-01-03] MEDS: DULOXETINE HCL 30 MG CAPSULE.DR PO SCH (21:51)
[2017-01-03] MEDS: PANTOPRAZOLE SODIUM 40 MG TABLET PO SCH (21:51)
[2017-01-03] MEDS: SIMVASTATIN 10MG TABLET PO SCH (21:51)
[2017-01-03] MEDS: DIPHENHYDRAMINE HCL 25 MG CAPSULE PO PRN (21:51)
[2017-01-03] MEDS: TOLTERODINE 2 MG PO SCH (21:52)
[2017-01-04 06:28] LABS: HEMATOCRIT 26.8 % (35.0-47.0); HEMOGLOBIN 7.6 gm/dl (11.6-16.0); MEAN CELL VOLUME 69.3 fl (81-97); MEAN CORPUSCULAR HEMOGLOBIN 19.6 pg (27-33); MEAN CORPUSCULAR HGB CONC 28.4 g/dl (32-36); MEAN PLATELET VOLUME 9.1 fl (7.4-10.4); PLATELET COUNT 432 K/uL (130-400); RED BLOOD COUNT 3.87 M/uL (3.80-5.40); RED CELL DISTRIBUTION WIDTH 17.8 % (11.5-14.5); WHITE BLOOD COUNT W/O DIFF 12.9 K/uL (4.2-12.2)
[2017-01-04] MEDS: MEROPENEM 1 GM in 0.9 % SODIUM CHLORIDE 100ML 100 ML IVPB SCH (06:39)
[2017-01-04 06:50] LABS: ALB/GLOB RATIO 1.2 (1.1-1.8); ALBUMIN 3.2 g/dL (4.0-5.0); ALKALINE PHOSPHATASE 114 U/L (35-104); ALT/SGPT 35 U/L (<33); AST/SGOT 19 U/L (10.0-35.0); BLOOD UREA NITROGEN 19 mg/dL (8-23); C-REACTIVE PROTEIN 2.4 mg/dL (<0.5); CREATINE PHOSPHOKINASE 29 U/L (26-192); CREATININE 0.6 mg/dL (0.5-0.9); EST GLOMERULAR FILTRATION RATE > 60 mL/min; GLUCOSE,RANDOM 123 mg/dL (74-109); TOTAL PROTEIN 5.9 g/dL (6.6-8.7)
[2017-01-04 07:05] LABS: ERYTHROCYTE SEDIMENTATION RATE 25 mm/hr (0-30)
[2017-01-04] MEDS: FERROUS SULFATE 325 MG TAB PO SCH ×2 (10:15→22:46)
[2017-01-04] MEDS: METFORMIN ER HCL 500 MG TAB.ER.24H PO SCH (10:15)
[2017-01-04] MEDS: DOCUSATE SODIUM 100 MG CAPSULE PO SCH ×2 (10:16→22:45)
[2017-01-04] MEDS: CHOLECALCIFEROL 1,000 UNIT TABLET PO SCH (10:17)
[2017-01-04] MEDS: ASCORBIC ACID 500 MG TAB PO SCH ×2 (10:17→22:46)
[2017-01-04] MEDS: CAPTOPRIL 12.5 MG TABLET PO SCH ×3 (10:17→22:46)
[2017-01-04] MEDS: MELOXICAM 7.5 MG TABLET PO SCH (10:17)
[2017-01-04] MEDS: FUROSEMIDE 20 MG TABLET PO SCH (10:46)
--- NOTE | 2017-01-04 13:53 | Occupational Therapy Tx Note ---
Occupational Therapy Tx Note - Treatment Note Tolerated: Good Total Time Spent With Patient: 45 (ther ex x 2, HP no charge) Occupational Therapy Treatment Note: Detail (S: Pt in bathroom, finishing self cares. O: Pt on 2 liters of oxygen. Adjusted leg brace to appropriate positioning. Pt amb 20 feet with 2 wheeled walker Indly. Pt propelled self approx. 50 feet in wheelchair before becoming fatigued. Pt taken to rehab gym and she completed imer UE overhead reaching with resisted clothespins. She required a short rest break due to shoulder pain in right UE with repetitive overhead reaching. Pt transported back to room via wheelchair. Sit to stand and amb to bathroom with 2 wheeled walker Indly. Completed toileting Indly. Amb to recliner chair and left with a hot pack on each shoulder x 10 min to decrease pain and soreness. A: Imer UE fatigue noted right worse than left. Decreased shortness of breath with activity.) Occupational Therapy Problem List: Detail (1. Decreased endurance needed for ADLs/IADLs. 2. Decreased Ind with total body dressing. 3. Decreased Ind with showering/bathing.) Occupational Therapy Goals: 1. Pt will be Ind with total body dressing using adaptive equipment. 2. Pt will be Ind with showering and/or sponge bathing at sink. 3. Pt will demonstrate improved endurance to allow safe and Ind return home. Prognosis: Good Occupational Therapy Plan: OT 2-4 days per week to address endurance, self cares and functional mobility to allow safe and Ind return home.
[2017-01-04] MEDS: OXYCODONE/APAP 10MG-325MG TABLET PO PRN ×2 (14:05→22:58)
[2017-01-04] MEDS: 0.9 % SODIUM CHLORIDE 10ML SYR IVP SCH (15:49)
[2017-01-04] MEDS: DAPTOMYCIN 500 MG/VIAL IV SCH (15:49)
[2017-01-04] MEDS: MEROPENEM 1 GM in 0.9% SODIUM CHLORIDE 50ML 50 ML IVPB SCH ×2 (15:50→22:53)
[2017-01-04] MEDS: HEPARIN SODIUM FLUSH 100 UNITS/ML SYR 5ML IVP SCH (16:01)
[2017-01-04] MEDS: IPRATROPIUM BR 0.02% NEB (0.5MG) INH PRN (21:27)
[2017-01-04] MEDS: ASPIRIN 81 MG TABEC PO SCH (22:45)
[2017-01-04] MEDS: SIMVASTATIN 10MG TABLET PO SCH (22:45)
[2017-01-04] MEDS: PANTOPRAZOLE SODIUM 40 MG TABLET PO SCH (22:45)
[2017-01-04] MEDS: DULOXETINE HCL 30 MG CAPSULE.DR PO SCH (22:45)
[2017-01-04] MEDS: TOLTERODINE 2 MG PO SCH (22:49)
[2017-01-05] MEDS: MEROPENEM 1 GM in 0.9% SODIUM CHLORIDE 50ML 50 ML IVPB SCH ×4 (00:28→23:21)
--- NOTE | 2017-01-05 07:18 | RADIOLOGY REPORT ---
EXAM: CHEST, TWO VIEWS HISTORY: FOLLOW-UP PNEUMONIA. TECHNIQUE: PA and lateral views of the chest were obtained. Comparison: Two view chest 12/28/16 at 1:19 p.m. FINDINGS: Previously seen PICC line remains in place. Stable heart size. There is persistent bilateral patchy foci of infiltrate. This has progressed slightly in the left apical region. There is also mild increased density on the right in the region of the inferior aspect of the right upper lobe laterally abutting the minor fissure. This may all represent pneumonitis, but developing pulmonary masses cannot be excluded. Continued follow-up is suggested. Greater blunting of the left costophrenic angle is probably by pleural effusion. No pneumothorax evident. IMPRESSION: 1. PERSISTENT PATCHY AREAS OF PARENCHYMAL CONSOLIDATION PARTICULARLY IN THE UPPER LOBES WITH SLIGHT INCREASE IN THE LEFT APICAL REGION COMPARED WITH . THIS MAY ALL REPRESENT PERSISTENT/PROGRESSIVE PNEUMONITIS, BUT FOLLOW-UP FILMS ARE SUGGESTED. 2. THERE IS PROBABLY A NEW LEFT PLEURAL EFFUSION WELL. 3. PICC LINE REMAINS IN PLACE. JOB NUMBER: [id number] MTDD
[2017-01-05] MEDS: 0.9 % SODIUM CHLORIDE 10ML SYR IVP SCH ×3 (08:22→15:56)
[2017-01-05] MEDS: HEPARIN SODIUM FLUSH 100 UNITS/ML SYR 5ML IVP SCH ×3 (08:22→15:57)
[2017-01-05] MEDS: IPRATROPIUM BR 0.02% NEB (0.5MG) INH PRN ×3 (08:24→20:09)
[2017-01-05] MEDS: CAPTOPRIL 12.5 MG TABLET PO SCH ×3 (10:18→23:20)
[2017-01-05] MEDS: MELOXICAM 7.5 MG TABLET PO SCH (10:19)
[2017-01-05] MEDS: DOCUSATE SODIUM 100 MG CAPSULE PO SCH ×2 (10:19→23:19)
[2017-01-05] MEDS: CHOLECALCIFEROL 1,000 UNIT TABLET PO SCH (10:19)
[2017-01-05] MEDS: FERROUS SULFATE 325 MG TAB PO SCH ×2 (10:19→23:20)
[2017-01-05] MEDS: OXYCODONE/APAP 10MG-325MG TABLET PO PRN ×2 (10:19→16:17)
[2017-01-05] MEDS: METFORMIN ER HCL 500 MG TAB.ER.24H PO SCH (10:20)
[2017-01-05] MEDS: ASCORBIC ACID 500 MG TAB PO SCH ×2 (10:20→23:19)
--- NOTE | 2017-01-05 15:06 | Occupational Therapy Tx Note ---
Occupational Therapy Tx Note - Treatment Note Tolerated: Good Total Time Spent With Patient: 40 (ther ex) Occupational Therapy Treatment Note: Detail (S: Pt in room, tearful due to knee pain and feeling like she is not progressing. O: Pt completed shiela UE strengthening/endurance activity with resisted clothespins and overhead reaching. She completed 10 min of yellow theraputty exercises for shiela core worker, rolling and pinch at bedside table. Reviewed bathroom set up and brainstormed ideas for ADLs after discharge. Pt amb 150 feet with 2 wheeled walker using 2 liters of oxygen, no rest breaks needed. A: Pt demonstrated improved UE endurance and less arm pain today, she also was able to ambulate farther with less shortness of breath.) Occupational Therapy Problem List: Detail (1. Decreased endurance needed for ADLs/IADLs. 2. Decreased Ind with total body dressing. 3. Decreased Ind with showering/bathing.) Occupational Therapy Goals: 1. Pt will be Ind with total body dressing using adaptive equipment. 2. Pt will be Ind with showering and/or sponge bathing at sink. 3. Pt will demonstrate improved endurance to allow safe and Ind return home. Prognosis: Good Occupational Therapy Plan: OT 2-4 days per week to address endurance, self cares and functional mobility to allow safe and Ind return home.
[2017-01-05] MEDS: DAPTOMYCIN 500 MG/VIAL IV SCH (15:56)
[2017-01-05] MEDS: DULOXETINE HCL 30 MG CAPSULE.DR PO SCH (23:19)
[2017-01-05] MEDS: SIMVASTATIN 10MG TABLET PO SCH (23:20)
[2017-01-05] MEDS: PANTOPRAZOLE SODIUM 40 MG TABLET PO SCH (23:20)
[2017-01-05] MEDS: ASPIRIN 81 MG TABEC PO SCH (23:20)
[2017-01-05] MEDS: TOLTERODINE 2 MG PO SCH (23:36)
[2017-01-06] MEDS: IPRATROPIUM BR 0.02% NEB (0.5MG) INH PRN ×3 (01:10→20:34)
[2017-01-06] MEDS: OXYCODONE/APAP 10MG-325MG TABLET PO PRN ×2 (01:32→15:35)
[2017-01-06] MEDS ORDERED: AL HYDROX/MAG HYDROX 30ML UD PO ONE (02:29)
[2017-01-06] MEDS ORDERED: LORAZEPAM 2 MG/ML VIAL IV ONE (02:29)
[2017-01-06] MEDS: MEROPENEM 1 GM in 0.9% SODIUM CHLORIDE 50ML 50 ML IVPB SCH ×3 (07:44→23:47)
[2017-01-06] MEDS: CAPTOPRIL 12.5 MG TABLET PO SCH ×3 (09:46→21:33)
[2017-01-06] MEDS: METFORMIN ER HCL 500 MG TAB.ER.24H PO SCH (09:47)
[2017-01-06] MEDS: DOCUSATE SODIUM 100 MG CAPSULE PO SCH ×2 (09:47→21:33)
[2017-01-06] MEDS: ASCORBIC ACID 500 MG TAB PO SCH ×2 (09:48→21:33)
[2017-01-06] MEDS: FERROUS SULFATE 325 MG TAB PO SCH ×2 (09:48→21:33)
[2017-01-06] MEDS: MELOXICAM 7.5 MG TABLET PO SCH (09:48)
[2017-01-06] MEDS: CHOLECALCIFEROL 1,000 UNIT TABLET PO SCH (09:49)
[2017-01-06] MEDS: DAPTOMYCIN 500 MG/VIAL IV SCH (15:34)
[2017-01-06] MEDS: 0.9 % SODIUM CHLORIDE 10ML SYR IVP SCH (15:34)
[2017-01-06] MEDS: HEPARIN SODIUM FLUSH 100 UNITS/ML SYR 5ML IVP SCH (15:34)
[2017-01-06] MEDS: SIMVASTATIN 10MG TABLET PO SCH (21:32)
[2017-01-06] MEDS: DULOXETINE HCL 30 MG CAPSULE.DR PO SCH (21:32)
[2017-01-06] MEDS: ASPIRIN 81 MG TABEC PO SCH (21:33)
[2017-01-06] MEDS: PANTOPRAZOLE SODIUM 40 MG TABLET PO SCH (21:33)
[2017-01-06] MEDS: TOLTERODINE 2 MG PO SCH (21:36)
[2017-01-07] MEDS: DIPHENHYDRAMINE HCL 25 MG CAPSULE PO PRN (02:33)
[2017-01-07] MEDS: OXYCODONE/APAP 10MG-325MG TABLET PO PRN ×2 (07:47→21:04)
[2017-01-07] MEDS: MEROPENEM 1 GM in 0.9% SODIUM CHLORIDE 50ML 50 ML IVPB SCH ×2 (07:48→15:36)
[2017-01-07] MEDS: CAPTOPRIL 12.5 MG TABLET PO SCH ×3 (09:21→21:30)
[2017-01-07] MEDS: DOCUSATE SODIUM 100 MG CAPSULE PO SCH ×2 (09:22→21:34)
[2017-01-07] MEDS: MELOXICAM 7.5 MG TABLET PO SCH (09:23)
[2017-01-07] MEDS: FERROUS SULFATE 325 MG TAB PO SCH ×2 (09:23→21:35)
[2017-01-07] MEDS: METFORMIN ER HCL 500 MG TAB.ER.24H PO SCH (09:23)
[2017-01-07] MEDS: CHOLECALCIFEROL 1,000 UNIT TABLET PO SCH (09:25)
[2017-01-07] MEDS: ASCORBIC ACID 500 MG TAB PO SCH ×2 (09:25→21:33)
--- NOTE | 2017-01-07 13:24 | Physical Therapy Tx Note ---
Physical Therapy Tx Note - Treatment Note Tolerated: Good Total Time Spent With Patient: 30 Physical Therapy Tx Note: Detail (Patient states right knee sore today. Patient was transferring to chair upon STUDENT COUNSELLOR arrival. Patient states at doctor's appointment yesterday, doctor stated that she no longer had to wear the knee brace, can weight bear as tolerated, and can perform knee ROM as tolerated. Patient transferred sit to and from stand independently. Patient ambulated 144 feet with 2L portable O2 with wheeled walker SBA x1. Patient performed the following exercises reclined in chair: ankle pumps x10, quad sets x10, hamstring sets x10, and heel slides x5. Patient tolerated treatment well. Patient reports right shoulder sore with ambulation, and right knee sore after treatment. Patient was left reclined in chair with 2L O2 with call light within reach.) Physical Therapy Problem List: Detail (1) Unable to maintain PWB status on R LE 2) Decreased ambulation distance 3) Nonambulatory on stairs) Physical Therapy Goals: 1) The patient will ambulate with wheeled walker a distance of 100 feet x 1, PWB on the R LE. 2) Ambulation on stairs with supervision. 3) The patient will be able to safely assess bathroom at home with use of alternate assistive device ( not walker). Prognosis: Good Physical Therapy Plan: PT 3 to 4 times a week M-F for gait training on levels and stairs and functional acitivities.
[2017-01-07] MEDS: IPRATROPIUM BR 0.02% NEB (0.5MG) INH PRN ×2 (13:56→21:26)
[2017-01-07] MEDS: DAPTOMYCIN 500 MG/VIAL IV SCH (15:08)
[2017-01-07] MEDS: HEPARIN SODIUM FLUSH 100 UNITS/ML SYR 5ML IVP SCH (15:08)
[2017-01-07] MEDS: 0.9 % SODIUM CHLORIDE 10ML SYR IVP SCH (15:08)
[2017-01-07] MEDS: PANTOPRAZOLE SODIUM 40 MG TABLET PO SCH (21:33)
[2017-01-07] MEDS: SIMVASTATIN 10MG TABLET PO SCH (21:33)
[2017-01-07] MEDS: TRAZODONE 50 MG TABLET PO SCH (21:34)
[2017-01-07] MEDS: ASPIRIN 81 MG TABEC PO SCH (21:34)
[2017-01-07] MEDS: DULOXETINE HCL 30 MG CAPSULE.DR PO SCH (21:34)
[2017-01-07] MEDS: TOLTERODINE 2 MG PO SCH (21:35)
[2017-01-08] MEDS: MEROPENEM 1 GM in 0.9% SODIUM CHLORIDE 50ML 50 ML IVPB SCH ×4 (01:02→23:45)
[2017-01-08] MEDS: 0.9 % SODIUM CHLORIDE 10ML SYR IVP SCH ×3 (08:47→15:53)
[2017-01-08] MEDS: HEPARIN SODIUM FLUSH 100 UNITS/ML SYR 5ML IVP SCH ×2 (08:47→15:53)
[2017-01-08] MEDS: IPRATROPIUM BR 0.02% NEB (0.5MG) INH PRN ×4 (09:00→20:22)
[2017-01-08] MEDS: CAPTOPRIL 12.5 MG TABLET PO SCH ×3 (09:25→22:05)
[2017-01-08] MEDS: MELOXICAM 7.5 MG TABLET PO SCH (09:25)
[2017-01-08] MEDS: DOCUSATE SODIUM 100 MG CAPSULE PO SCH ×2 (09:25→22:06)
[2017-01-08] MEDS: CHOLECALCIFEROL 1,000 UNIT TABLET PO SCH (09:25)
[2017-01-08] MEDS: FERROUS SULFATE 325 MG TAB PO SCH ×2 (09:25→22:06)
[2017-01-08] MEDS: ASCORBIC ACID 500 MG TAB PO SCH ×2 (09:26→22:05)
[2017-01-08] MEDS: METFORMIN ER HCL 500 MG TAB.ER.24H PO SCH (09:26)
--- NOTE | 2017-01-08 11:48 | Occupational Therapy Tx Note ---
Occupational Therapy Tx Note - Treatment Note Tolerated: Good Total Time Spent With Patient: 60 (ther activity x 45, HP x 15) Occupational Therapy Treatment Note: Detail (S: Pt up in chair, finishing dressing. O: Sit to stand and amb 30 feet with 2 wheeled walker and 2 liters oxygen. Pt transported to rehab gym via wheelchair. Pt completed imer UE overhead reaching and resisted pinch activity with 1# wrist weight on each arm. Red theraputty for imer hand molder and pinch strengthening. PREs using 2# free weights for bicep curls and overhead shoulder press, triceps using red theraband x 10 reps each. Pt transported back to room and hot packs applied to imer shoulders x 15 min. A: Imer UE strength and endurance improving, increased functional use noted with transfers and ambulation) Occupational Therapy Problem List: Detail (1. Decreased endurance needed for ADLs/IADLs. 2. Decreased Ind with total body dressing. 3. Decreased Ind with showering/bathing.) Occupational Therapy Goals: 1. Pt will be Ind with total body dressing using adaptive equipment. 2. Pt will be Ind with showering and/or sponge bathing at sink. 3. Pt will demonstrate improved endurance to allow safe and Ind return home. Prognosis: Good Occupational Therapy Plan: OT 2-4 days per week to address endurance, self cares and functional mobility to allow safe and Ind return home.
[2017-01-08] MEDS: DAPTOMYCIN 500 MG/VIAL IV SCH (15:14)
[2017-01-08] MEDS: DULOXETINE HCL 30 MG CAPSULE.DR PO SCH (22:05)
[2017-01-08] MEDS: TRAZODONE 50 MG TABLET PO SCH (22:06)
[2017-01-08] MEDS: DIPHENHYDRAMINE HCL 25 MG CAPSULE PO PRN (22:06)
[2017-01-08] MEDS: ASPIRIN 81 MG TABEC PO SCH (22:06)
[2017-01-08] MEDS: PANTOPRAZOLE SODIUM 40 MG TABLET PO SCH (22:06)
[2017-01-08] MEDS: SIMVASTATIN 10MG TABLET PO SCH (22:06)
[2017-01-08] MEDS: OXYCODONE/APAP 10MG-325MG TABLET PO PRN (22:08)
[2017-01-08] MEDS: TOLTERODINE 2 MG PO SCH (22:08)
[2017-01-09] MEDS: MEROPENEM 1 GM in 0.9% SODIUM CHLORIDE 50ML 50 ML IVPB SCH ×2 (09:22→16:05)
[2017-01-09] MEDS: CAPTOPRIL 12.5 MG TABLET PO SCH ×3 (09:41→21:59)
[2017-01-09] MEDS: MELOXICAM 7.5 MG TABLET PO SCH (09:41)
[2017-01-09] MEDS: DOCUSATE SODIUM 100 MG CAPSULE PO SCH ×2 (09:42→21:58)
[2017-01-09] MEDS: CHOLECALCIFEROL 1,000 UNIT TABLET PO SCH (09:42)
[2017-01-09] MEDS: METFORMIN ER HCL 500 MG TAB.ER.24H PO SCH (09:44)
[2017-01-09] MEDS: ASCORBIC ACID 500 MG TAB PO SCH ×3 (09:45→21:58)
[2017-01-09] MEDS: FERROUS SULFATE 325 MG TAB PO SCH ×2 (09:49→21:58)
[2017-01-09] MEDS: IPRATROPIUM BR 0.02% NEB (0.5MG) INH PRN ×3 (10:13→23:16)
[2017-01-09] MEDS: 0.9 % SODIUM CHLORIDE 10ML SYR IVP SCH (16:04)
[2017-01-09] MEDS: DAPTOMYCIN 500 MG/VIAL IV SCH (16:04)
[2017-01-09] MEDS: HEPARIN SODIUM FLUSH 100 UNITS/ML SYR 5ML IVP SCH (16:05)
[2017-01-09] MEDS: TOLTERODINE 2 MG PO SCH (21:58)
[2017-01-09] MEDS: SIMVASTATIN 10MG TABLET PO SCH (21:58)
[2017-01-09] MEDS: ASPIRIN 81 MG TABEC PO SCH (21:59)
[2017-01-09] MEDS: DIPHENHYDRAMINE HCL 25 MG CAPSULE PO PRN (21:59)
[2017-01-09] MEDS: DULOXETINE HCL 30 MG CAPSULE.DR PO SCH (21:59)
[2017-01-09] MEDS: TRAZODONE 50 MG TABLET PO SCH (21:59)
[2017-01-09] MEDS: PANTOPRAZOLE SODIUM 40 MG TABLET PO SCH (22:00)
[2017-01-09] MEDS: OXYCODONE/APAP 10MG-325MG TABLET PO PRN (22:05)
[2017-01-10] MEDS: MEROPENEM 1 GM in 0.9% SODIUM CHLORIDE 50ML 50 ML IVPB SCH ×3 (00:06→15:54)
[2017-01-10] MEDS: OXYCODONE/APAP 10MG-325MG TABLET PO PRN ×2 (08:03→21:34)
[2017-01-10] MEDS: CAPTOPRIL 12.5 MG TABLET PO SCH ×3 (09:46→21:32)
[2017-01-10] MEDS: ASCORBIC ACID 500 MG TAB PO SCH ×2 (09:46→21:33)
[2017-01-10] MEDS: DOCUSATE SODIUM 100 MG CAPSULE PO SCH ×2 (09:46→21:32)
[2017-01-10] MEDS: CHOLECALCIFEROL 1,000 UNIT TABLET PO SCH (09:47)
[2017-01-10] MEDS: METFORMIN ER HCL 500 MG TAB.ER.24H PO SCH (09:47)
[2017-01-10] MEDS: MELOXICAM 7.5 MG TABLET PO SCH (09:47)
[2017-01-10] MEDS: FERROUS SULFATE 325 MG TAB PO SCH ×2 (09:47→21:33)
[2017-01-10] MEDS: IPRATROPIUM BR 0.02% NEB (0.5MG) INH PRN ×3 (09:53→19:43)
[2017-01-10] MEDS: HEPARIN SODIUM FLUSH 100 UNITS/ML SYR 5ML IVP SCH (15:56)
[2017-01-10] MEDS: 0.9 % SODIUM CHLORIDE 10ML SYR IVP SCH (15:57)
[2017-01-10] MEDS: DAPTOMYCIN 500 MG/VIAL IV SCH (15:57)
[2017-01-10] MEDS: SIMVASTATIN 10MG TABLET PO SCH (21:32)
[2017-01-10] MEDS: PANTOPRAZOLE SODIUM 40 MG TABLET PO SCH (21:33)
[2017-01-10] MEDS: TRAZODONE 50 MG TABLET PO SCH (21:33)
[2017-01-10] MEDS: DULOXETINE HCL 30 MG CAPSULE.DR PO SCH (21:33)
[2017-01-10] MEDS: ASPIRIN 81 MG TABEC PO SCH (21:33)
[2017-01-10] MEDS: DIPHENHYDRAMINE HCL 25 MG CAPSULE PO PRN (21:33)
[2017-01-10] MEDS: TOLTERODINE 2 MG PO SCH (21:38)
[2017-01-11] MEDS: MEROPENEM 1 GM in 0.9% SODIUM CHLORIDE 50ML 50 ML IVPB SCH ×3 (00:18→15:12)
[2017-01-11] MEDS: CHOLECALCIFEROL 1,000 UNIT TABLET PO SCH (11:31)
[2017-01-11] MEDS: METFORMIN ER HCL 500 MG TAB.ER.24H PO SCH (11:32)
[2017-01-11] MEDS: MELOXICAM 7.5 MG TABLET PO SCH (11:32)
[2017-01-11] MEDS: FERROUS SULFATE 325 MG TAB PO SCH ×2 (11:32→22:44)
[2017-01-11] MEDS: DOCUSATE SODIUM 100 MG CAPSULE PO SCH ×2 (11:32→22:45)
[2017-01-11] MEDS: ASCORBIC ACID 500 MG TAB PO SCH ×2 (11:32→22:43)
[2017-01-11] MEDS: CAPTOPRIL 12.5 MG TABLET PO SCH ×3 (11:32→22:42)
[2017-01-11] MEDS: HEPARIN SODIUM FLUSH 100 UNITS/ML SYR 5ML IVP SCH ×2 (11:34→15:57)
[2017-01-11] MEDS: 0.9 % SODIUM CHLORIDE 10ML SYR IVP SCH ×3 (11:34→15:56)
--- NOTE | 2017-01-11 11:36 | Physical Therapy Tx Note ---
Physical Therapy Tx Note - Treatment Note Tolerated: Good Total Time Spent With Patient: 35 Physical Therapy Tx Note: Detail (Pt. reports she is feeling very tired today, but would be able to participate in PT services today. Pt. ambulated 30 ft. with a front-wheeled walker and 2L of oxygen CGA x1 before asking to sit down due to feeling tired. Pt. ascended 2 large steps and descended 3 smaller steps, turned around and ascended 3 smaller steps and descended the 2 larger steps with no difficulty exhibiting a step two pattern on the steps with the use of both hand rails. Once seated back in her wheel chair, pt.'s O2 sat. was taken and was at 88, but elevated back to 96 after about 30 seconds in the chair. Pt. completed ther ex of quad sets 1x10, glute sets 1x10, hip ADD ball squeezes 1x10 , and resisted hip ABD with a red band 1x10. Pt. tolerated treatment well with no increase in pain, but did report she still felt very tired. Pt. exhibited slight shortness of breath after completion of ambulation, stairs and exercises in her chair. Pt. was left seated with her 2L of oxygen hooked up and call light available. Nursing staff was notified.) Physical Therapy Problem List: Detail (1) Unable to maintain PWB status on R LE 2) Decreased ambulation distance 3) Nonambulatory on stairs) Physical Therapy Goals: 1) The patient will ambulate with wheeled walker a distance of 100 feet x 1, PWB on the R LE. 2) Ambulation on stairs with supervision. 3) The patient will be able to safely assess bathroom at home with use of alternate assistive device ( not walker). Physical Therapy Plan: PT 3 to 4 times a week M-F for gait training on levels and stairs and functional acitivities.
[2017-01-11] MEDS: IPRATROPIUM BR 0.02% NEB (0.5MG) INH PRN ×2 (14:15→21:25)
[2017-01-11] MEDS: DAPTOMYCIN 500 MG/VIAL IV SCH (15:11)
[2017-01-11] MEDS: ONDANSETRON 4 MG ODT TABLET SL PRN (19:38)
[2017-01-11] MEDS: OXYCODONE/APAP 10MG-325MG TABLET PO PRN (20:40)
[2017-01-11] MEDS: DULOXETINE HCL 30 MG CAPSULE.DR PO SCH (22:43)
[2017-01-11] MEDS: ASPIRIN 81 MG TABEC PO SCH (22:43)
[2017-01-11] MEDS: PANTOPRAZOLE SODIUM 40 MG TABLET PO SCH (22:44)
[2017-01-11] MEDS: SIMVASTATIN 10MG TABLET PO SCH (22:44)
[2017-01-11] MEDS: TRAZODONE 50 MG TABLET PO SCH (22:44)
[2017-01-11] MEDS: TOLTERODINE 2 MG PO SCH (22:45)
[2017-01-12] MEDS: MEROPENEM 1 GM in 0.9% SODIUM CHLORIDE 50ML 50 ML IVPB SCH ×4 (01:05→23:34)
[2017-01-12] MEDS: OXYCODONE/APAP 10MG-325MG TABLET PO PRN ×3 (01:23→23:31)
[2017-01-12 08:18] LABS: BASO % 0.4 % (0-6); EOS % 5.3 % (0-6); GRAN % 76.2 % (47-80); HEMATOCRIT 27.6 % (35.0-47.0); HEMOGLOBIN 7.6 gm/dl (11.6-16.0); LYMPH % 10.9 % (16-45); MEAN PLATELET VOLUME 9.1 fl (7.4-10.4); MONO % 7.2 % (0-9); PLATELET COUNT 438 K/uL (130-400); RED BLOOD COUNT 3.96 M/uL (3.80-5.40); RED CELL DISTRIBUTION WIDTH 18.9 % (11.5-14.5); WHITE BLOOD COUNT W/O DIFF 13.8 K/uL (4.2-12.2)
[2017-01-12 08:29] LABS: BLOOD UREA NITROGEN 21 mg/dL (8-23); CREATININE 0.6 mg/dL (0.5-0.9); EST GLOMERULAR FILTRATION RATE > 60 mL/min
[2017-01-12 08:30] LABS: TOTAL PROTEIN 6.1 g/dL (6.6-8.7)
[2017-01-12 08:31] LABS: GLUCOSE,RANDOM 132 mg/dL (74-109)
[2017-01-12 08:34] LABS: ALB/GLOB RATIO 1.1 (1.1-1.8); ALBUMIN 3.2 g/dL (4.0-5.0); ALKALINE PHOSPHATASE 109 U/L (35-104); ALT/SGPT 23 U/L (<33); AST/SGOT 18 U/L (10.0-35.0); C-REACTIVE PROTEIN 7.88 mg/dL (<0.5); CREATINE PHOSPHOKINASE 22 U/L (26-192)
[2017-01-12 08:36] LABS: MEAN CELL VOLUME 69.7 fl (81-97); MEAN CORPUSCULAR HEMOGLOBIN 19.1 pg (27-33); MEAN CORPUSCULAR HGB CONC 27.5 g/dl (32-36)
[2017-01-12 09:14] LABS: ERYTHROCYTE SEDIMENTATION RATE 48 mm/hr (0-30)
[2017-01-12] MEDS: CAPTOPRIL 12.5 MG TABLET PO SCH ×3 (09:31→21:59)
[2017-01-12] MEDS: METFORMIN ER HCL 500 MG TAB.ER.24H PO SCH (09:32)
[2017-01-12] MEDS: MELOXICAM 7.5 MG TABLET PO SCH (09:32)
[2017-01-12] MEDS: DOCUSATE SODIUM 100 MG CAPSULE PO SCH ×2 (09:32→21:59)
[2017-01-12] MEDS: FERROUS SULFATE 325 MG TAB PO SCH ×2 (09:32→21:59)
[2017-01-12] MEDS: ASCORBIC ACID 500 MG TAB PO SCH ×2 (09:33→21:59)
[2017-01-12] MEDS: CHOLECALCIFEROL 1,000 UNIT TABLET PO SCH (09:33)
--- NOTE | 2017-01-12 12:41 | Occupational Therapy Tx Note ---
Occupational Therapy Tx Note - Treatment Note Tolerated: Good Total Time Spent With Patient: 45 (ther ex) Occupational Therapy Treatment Note: Detail (S: Pt feeling better today. O: Pt on 1 liter of oxygen today. Sit to stand and amb 40 feet with 2 wheeled walker. Transported to rehab gym via wheelchair. Pt completed shiela UE strengthening activities including resistive overhead reaching with 1# wrist weights, shoulder arc x 1 each UE, 2# PREs for shoulder overhead press x 10 reps , red theraband for shiela bicep curls and tricep extensions x 10 reps each. Reviewed diaghramatic breathing, pt verbalized understanding but will require cont. teaching. Transported back to room via wheelchair. A: Improvement with UE endurance and overall strength today, less short of breath with activity) Occupational Therapy Problem List: Detail (1. Decreased endurance needed for ADLs/IADLs. 2. Decreased Ind with total body dressing. 3. Decreased Ind with showering/bathing.) Occupational Therapy Goals: 1. Pt will be Ind with total body dressing using adaptive equipment. 2. Pt will be Ind with showering and/or sponge bathing at sink. 3. Pt will demonstrate improved endurance to allow safe and Ind return home. Prognosis: Good Occupational Therapy Plan: OT 2-4 days per week to address endurance, self cares and functional mobility to allow safe and Ind return home.
[2017-01-12] MEDS: DAPTOMYCIN 500 MG/VIAL IV SCH (15:06)
[2017-01-12] MEDS: 0.9 % SODIUM CHLORIDE 10ML SYR IVP SCH (15:06)
[2017-01-12] MEDS: SODIUM CHLORIDE 0.9% IVPB SCH (15:07)
[2017-01-12] MEDS: IRON SUCROSE COMPLEX IVPB SCH (15:07)
[2017-01-12] MEDS: HEPARIN SODIUM FLUSH 100 UNITS/ML SYR 5ML IVP SCH (17:46)
[2017-01-12] MEDS: ONDANSETRON 4 MG ODT TABLET SL PRN (21:21)
[2017-01-12] MEDS: SIMVASTATIN 10MG TABLET PO SCH (21:59)
[2017-01-12] MEDS: PANTOPRAZOLE SODIUM 40 MG TABLET PO SCH (22:00)
[2017-01-12] MEDS: DULOXETINE HCL 30 MG CAPSULE.DR PO SCH (22:00)
[2017-01-12] MEDS: TRAZODONE 50 MG TABLET PO SCH (22:00)
[2017-01-12] MEDS: ASPIRIN 81 MG TABEC PO SCH (22:00)
[2017-01-12] MEDS: TOLTERODINE 2 MG PO SCH (22:03)
[2017-01-13] MEDS: MEROPENEM 1 GM in 0.9% SODIUM CHLORIDE 50ML 50 ML IVPB SCH ×3 (08:53→23:30)
[2017-01-13] MEDS: CHOLECALCIFEROL 1,000 UNIT TABLET PO SCH (10:43)
[2017-01-13] MEDS: CAPTOPRIL 12.5 MG TABLET PO SCH ×3 (10:45→23:14)
[2017-01-13] MEDS: DOCUSATE SODIUM 100 MG CAPSULE PO SCH ×2 (10:46→23:15)
[2017-01-13] MEDS: METFORMIN ER HCL 500 MG TAB.ER.24H PO SCH (10:46)
[2017-01-13] MEDS: FERROUS SULFATE 325 MG TAB PO SCH ×2 (10:46→23:14)
[2017-01-13] MEDS: MELOXICAM 7.5 MG TABLET PO SCH (10:46)
[2017-01-13] MEDS: ASCORBIC ACID 500 MG TAB PO SCH ×2 (10:47→23:15)
[2017-01-13] MEDS: 0.9 % SODIUM CHLORIDE 10ML SYR IVP SCH ×2 (15:04→23:30)
[2017-01-13] MEDS: DAPTOMYCIN 500 MG/VIAL IV SCH (15:05)
[2017-01-13] MEDS: HEPARIN SODIUM FLUSH 100 UNITS/ML SYR 5ML IVP SCH (15:09)
[2017-01-13] MEDS: OXYCODONE/APAP 10MG-325MG TABLET PO PRN ×2 (15:09→23:15)
--- NOTE | 2017-01-13 16:23 | Physical Therapy Tx Note ---
Physical Therapy Tx Note - Treatment Note Tolerated: Good Total Time Spent With Patient: 30 Physical Therapy Tx Note: Detail (The patient was up in chair when PT arrived . The patient was taken to PT department. The patient was instructed in pursed lip breathing. The patient ambulated 50 feet without O2 maintaining O2 saturation from 91 to 94. O2 was placed on patient (1L) and she completed side stepping along the parallel bar to simulate ambulation in her bathroom and kitchen. The patient complained of sharp knee pain prior to sidestepping ambulation. Improved breathing techniques were noted and good O2 sat levels with ambulation.) Physical Therapy Problem List: Detail (1) Unable to maintain PWB status on R LE 2) Decreased ambulation distance 3) Nonambulatory on stairs) Physical Therapy Goals: 1) The patient will ambulate with wheeled walker a distance of 100 feet x 1, PWB on the R LE. 2) Ambulation on stairs with supervision. 3) The patient will be able to safely assess bathroom at home with use of alternate assistive device ( not walker). Physical Therapy Plan: PT 3 to 4 times a week M-F for gait training on levels and stairs and functional acitivities.
[2017-01-13] MEDS: ENOXAPARIN 40 MG/0.4 ML SYR SQ SCH (16:30)
[2017-01-13] MEDS: TRAZODONE 50 MG TABLET PO SCH (23:14)
[2017-01-13] MEDS: ASPIRIN 81 MG TABEC PO SCH (23:14)
[2017-01-13] MEDS: DULOXETINE HCL 30 MG CAPSULE.DR PO SCH (23:15)
[2017-01-13] MEDS: SIMVASTATIN 10MG TABLET PO SCH (23:15)
[2017-01-13] MEDS: TOLTERODINE 2 MG PO SCH (23:16)
[2017-01-13] MEDS: PANTOPRAZOLE SODIUM 40 MG TABLET PO SCH (23:17)
[2017-01-14] MEDS: MEROPENEM 1 GM in 0.9% SODIUM CHLORIDE 50ML 50 ML IVPB SCH (08:56)
[2017-01-14] MEDS: CHOLECALCIFEROL 1,000 UNIT TABLET PO SCH (09:34)
[2017-01-14] MEDS: METFORMIN ER HCL 500 MG TAB.ER.24H PO SCH (09:35)
[2017-01-14] MEDS: CAPTOPRIL 12.5 MG TABLET PO SCH ×3 (09:35→21:10)
[2017-01-14] MEDS: ENOXAPARIN 40 MG/0.4 ML SYR SQ SCH (09:36)
[2017-01-14] MEDS: DOCUSATE SODIUM 100 MG CAPSULE PO SCH ×2 (09:36→21:09)
[2017-01-14] MEDS: MELOXICAM 7.5 MG TABLET PO SCH (09:36)
[2017-01-14] MEDS: ASCORBIC ACID 500 MG TAB PO SCH ×2 (09:36→21:09)
[2017-01-14] MEDS: 0.9 % SODIUM CHLORIDE 10ML SYR IVP SCH ×2 (09:37→16:27)
[2017-01-14] MEDS: HEPARIN SODIUM FLUSH 100 UNITS/ML SYR 5ML IVP SCH ×2 (09:37→17:53)
[2017-01-14] MEDS: FERROUS SULFATE 325 MG TAB PO SCH ×2 (09:37→21:10)
[2017-01-14] MEDS: DAPTOMYCIN 500 MG/VIAL IV SCH (16:21)
[2017-01-14] MEDS: OXYCODONE/APAP 10MG-325MG TABLET PO PRN (17:13)
[2017-01-14] MEDS: ASPIRIN 81 MG TABEC PO SCH (21:09)
[2017-01-14] MEDS: DULOXETINE HCL 30 MG CAPSULE.DR PO SCH (21:09)
[2017-01-14] MEDS: SIMVASTATIN 10MG TABLET PO SCH (21:10)
[2017-01-14] MEDS: TRAZODONE 50 MG TABLET PO SCH (21:10)
[2017-01-14] MEDS: PANTOPRAZOLE SODIUM 40 MG TABLET PO SCH (21:10)
[2017-01-14] MEDS: TOLTERODINE 2 MG PO SCH (21:11)
[2017-01-15] MEDS: IPRATROPIUM BR 0.02% NEB (0.5MG) INH PRN ×2 (09:46→21:41)
--- NOTE | 2017-01-15 10:04 | Physical Therapy Tx Note ---
Physical Therapy Tx Note - Treatment Note Tolerated: Good Total Time Spent With Patient: 25 Physical Therapy Tx Note: Detail (The patient was up in chair when PT arrived. The patient complained of increased sinus drainage this am and coughing. The patient ambulated independently to bathroom with 1 L of O2. The patient returned to sitting and O2 was removed. The patient's O2 sat. level remained above 90 while seated. The patient ambulated 65 feet x1 with wheeled walker WBAT on the R LE. O2 sat. level remained steady at 92. The patient returned to chair and was left on room air per recommendation of respiratory therapist. Patient 's call light was within reach.) Physical Therapy Problem List: Detail (1) Unable to maintain PWB status on R LE 2) Decreased ambulation distance 3) Nonambulatory on stairs) Physical Therapy Goals: 1) The patient will ambulate with wheeled walker a distance of 100 feet x 1, PWB on the R LE. 2) Ambulation on stairs with supervision. 3) The patient will be able to safely assess bathroom at home with use of alternate assistive device ( not walker). Physical Therapy Plan: PT 3 to 4 times a week M-F for gait training on levels and stairs and functional acitivities.
[2017-01-15] MEDS: DOCUSATE SODIUM 100 MG CAPSULE PO SCH ×2 (11:24→21:10)
[2017-01-15] MEDS: CAPTOPRIL 12.5 MG TABLET PO SCH ×3 (11:24→21:11)
[2017-01-15] MEDS: ASCORBIC ACID 500 MG TAB PO SCH ×2 (11:24→21:10)
[2017-01-15] MEDS: MELOXICAM 7.5 MG TABLET PO SCH (11:24)
[2017-01-15] MEDS: CHOLECALCIFEROL 1,000 UNIT TABLET PO SCH (11:24)
[2017-01-15] MEDS: METFORMIN ER HCL 500 MG TAB.ER.24H PO SCH (11:27)
[2017-01-15] MEDS: ENOXAPARIN 40 MG/0.4 ML SYR SQ SCH (11:27)
[2017-01-15] MEDS: FERROUS SULFATE 325 MG TAB PO SCH ×2 (11:27→21:10)
[2017-01-15] MEDS: GUAIFENESIN/D-METH. 10 ML UDC PO PRN ×2 (14:19→21:41)
[2017-01-15] MEDS: 0.9 % SODIUM CHLORIDE 10ML SYR IVP SCH (14:54)
[2017-01-15] MEDS: DAPTOMYCIN 500 MG/VIAL IV SCH (14:54)
[2017-01-15] MEDS: IRON SUCROSE COMPLEX IVPB SCH (14:54)
[2017-01-15] MEDS: SODIUM CHLORIDE 0.9% IVPB SCH (14:54)
[2017-01-15] MEDS: HEPARIN SODIUM FLUSH 100 UNITS/ML SYR 5ML IVP SCH (17:18)
[2017-01-15] MEDS: SIMVASTATIN 10MG TABLET PO SCH (21:10)
[2017-01-15] MEDS: TRAZODONE 50 MG TABLET PO SCH (21:10)
[2017-01-15] MEDS: PANTOPRAZOLE SODIUM 40 MG TABLET PO SCH (21:10)
[2017-01-15] MEDS: DULOXETINE HCL 30 MG CAPSULE.DR PO SCH (21:10)
[2017-01-15] MEDS: ASPIRIN 81 MG TABEC PO SCH (21:10)
[2017-01-15] MEDS: TOLTERODINE 2 MG PO SCH (21:13)
[2017-01-15] MEDS: OXYCODONE/APAP 10MG-325MG TABLET PO PRN (21:18)
[2017-01-16] MEDS ORDERED: LORAZEPAM 2 MG/ML VIAL IV ONE (03:24)
[2017-01-16] MEDS ORDERED: METOPROLOL SUCC 50 MG TABLET PO ONE (04:12)
[2017-01-16] MEDS ORDERED: RIVAROXABAN 20 MG TABLET PO SCH (05:15)
[2017-01-16] MEDS ORDERED: DILTIAZEM 25MG/5ML VIAL IV ONE (05:55)
[2017-01-16] MEDS ORDERED: METOPROLOL SUCC 25 MG TAB.ER PO ONE (06:46)
[2017-01-16 09:42] LABS: BASO % 0.5 % (0-6); EOS % 2.8 % (0-6); GRAN % 78.9 % (47-80); HEMATOCRIT 30.4 % (35.0-47.0); HEMOGLOBIN 8.7 gm/dl (11.6-16.0); LYMPH % 9.9 % (16-45); MEAN CELL VOLUME 68.2 fl (81-97); MEAN CORPUSCULAR HEMOGLOBIN 19.5 pg (27-33); MEAN CORPUSCULAR HGB CONC 28.6 g/dl (32-36); MEAN PLATELET VOLUME 9.5 fl (7.4-10.4); MONO % 7.9 % (0-9); PLATELET COUNT 436 K/uL (130-400); RED BLOOD COUNT 4.46 M/uL (3.80-5.40); RED CELL DISTRIBUTION WIDTH 20.1 % (11.5-14.5); WHITE BLOOD COUNT W/O DIFF 13.4 K/uL (4.2-12.2)
[2017-01-16] MEDS: CAPTOPRIL 12.5 MG TABLET PO SCH ×3 (09:53→22:21)
[2017-01-16] MEDS: MELOXICAM 7.5 MG TABLET PO SCH (09:53)
[2017-01-16] MEDS: ASCORBIC ACID 500 MG TAB PO SCH ×2 (09:54→22:22)
[2017-01-16] MEDS: DOCUSATE SODIUM 100 MG CAPSULE PO SCH ×2 (09:54→22:21)
[2017-01-16] MEDS: RIVAROXABAN 10 MG TABLET PO SCH (09:54)
[2017-01-16] MEDS: FERROUS SULFATE 325 MG TAB PO SCH ×2 (09:54→22:22)
[2017-01-16] MEDS: METFORMIN ER HCL 500 MG TAB.ER.24H PO SCH (09:54)
[2017-01-16 09:55] LABS: BLOOD UREA NITROGEN 15 mg/dL (8-23); CREATININE 0.5 mg/dL (0.5-0.9); EST GLOMERULAR FILTRATION RATE > 60 mL/min
[2017-01-16] MEDS: 0.9 % SODIUM CHLORIDE 10ML SYR IVP SCH ×2 (09:55→16:08)
[2017-01-16] MEDS: CHOLECALCIFEROL 1,000 UNIT TABLET PO SCH (09:55)
[2017-01-16] MEDS: HEPARIN SODIUM FLUSH 100 UNITS/ML SYR 5ML IVP SCH ×2 (09:55→16:08)
[2017-01-16 10:03] LABS: CKMB 2.7 ng/mL (<3.77)
[2017-01-16] MEDS: DAPTOMYCIN 500 MG/VIAL IV SCH (16:07)
[2017-01-16] MEDS: IPRATROPIUM BR 0.02% NEB (0.5MG) INH PRN (21:06)
[2017-01-16] MEDS: GUAIFENESIN/D-METH. 10 ML UDC PO PRN (22:21)
[2017-01-16] MEDS: ASPIRIN 81 MG TABEC PO SCH (22:21)
[2017-01-16] MEDS: DULOXETINE HCL 30 MG CAPSULE.DR PO SCH (22:22)
[2017-01-16] MEDS: SIMVASTATIN 10MG TABLET PO SCH (22:22)
[2017-01-16] MEDS: TRAZODONE 50 MG TABLET PO SCH (22:22)
[2017-01-16] MEDS: OXYCODONE/APAP 10MG-325MG TABLET PO PRN (22:22)
[2017-01-16] MEDS: TOLTERODINE 2 MG PO SCH (22:23)
[2017-01-16] MEDS: PANTOPRAZOLE SODIUM 40 MG TABLET PO SCH (22:25)
[2017-01-17 07:10] LABS: BASO % 0.4 % (0-6); EOS % 6.2 % (0-6); GRAN % 72.3 % (47-80); HEMATOCRIT 31.1 % (35.0-47.0); LYMPH % 12.4 % (16-45); MEAN CORPUSCULAR HEMOGLOBIN 19.3 pg (27-33); MEAN CORPUSCULAR HGB CONC 28.3 g/dl (32-36); MEAN PLATELET VOLUME 9.4 fl (7.4-10.4); MONO % 8.7 % (0-9); PLATELET COUNT 459 K/uL (130-400); RED BLOOD COUNT 4.55 M/uL (3.80-5.40); RED CELL DISTRIBUTION WIDTH 20.5 % (11.5-14.5); WHITE BLOOD COUNT W/O DIFF 16.4 K/uL (4.2-12.2)
[2017-01-17 07:16] LABS: MEAN CELL VOLUME 68.4 fl (81-97)
[2017-01-17 07:17] LABS: HEMOGLOBIN 8.8 gm/dl (11.6-16.0)
[2017-01-17 07:29] LABS: ALBUMIN 3.5 g/dL (4.0-5.0); ALKALINE PHOSPHATASE 117 U/L (35-104); ALT/SGPT 21 U/L (<33); AST/SGOT 13 U/L (10.0-35.0); BLOOD UREA NITROGEN 19 mg/dL (8-23); C-REACTIVE PROTEIN 7.02 mg/dL (<0.5); CREATINE PHOSPHOKINASE 26 U/L (26-192); CREATININE 0.5 mg/dL (0.5-0.9); EST GLOMERULAR FILTRATION RATE > 60 mL/min; GLUCOSE,RANDOM 146 mg/dL (74-109)
[2017-01-17 07:45] LABS: ERYTHROCYTE SEDIMENTATION RATE 41 mm/hr (0-30)
[2017-01-17] MEDS: CAPTOPRIL 12.5 MG TABLET PO SCH ×3 (11:31→21:30)
[2017-01-17] MEDS: MELOXICAM 7.5 MG TABLET PO SCH (11:32)
[2017-01-17] MEDS: METOPROLOL SUCC 50 MG TABLET PO SCH (11:32)
[2017-01-17] MEDS: RIVAROXABAN 10 MG TABLET PO SCH (11:32)
[2017-01-17] MEDS: METFORMIN ER HCL 500 MG TAB.ER.24H PO SCH (11:32)
[2017-01-17] MEDS: ASCORBIC ACID 500 MG TAB PO SCH ×2 (11:32→21:30)
[2017-01-17] MEDS: FERROUS SULFATE 325 MG TAB PO SCH ×2 (11:32→21:30)
[2017-01-17] MEDS: CHOLECALCIFEROL 1,000 UNIT TABLET PO SCH (11:32)
[2017-01-17] MEDS: DOCUSATE SODIUM 100 MG CAPSULE PO SCH ×2 (11:33→21:30)
[2017-01-17] MEDS: IPRATROPIUM BR 0.02% NEB (0.5MG) INH PRN ×2 (16:15→21:07)
[2017-01-17] MEDS: DAPTOMYCIN 500 MG/VIAL IV SCH (16:34)
[2017-01-17] MEDS: 0.9 % SODIUM CHLORIDE 10ML SYR IVP SCH (16:34)
[2017-01-17] MEDS: HEPARIN SODIUM FLUSH 100 UNITS/ML SYR 5ML IVP SCH (16:34)
[2017-01-17] MEDS: GUAIFENESIN/D-METH. 10 ML UDC PO PRN ×2 (16:49→21:35)
[2017-01-17] MEDS: ASPIRIN 81 MG TABEC PO SCH (21:30)
[2017-01-17] MEDS: TRAZODONE 50 MG TABLET PO SCH (21:30)
[2017-01-17] MEDS: PANTOPRAZOLE SODIUM 40 MG TABLET PO SCH (21:30)
[2017-01-17] MEDS: SIMVASTATIN 10MG TABLET PO SCH (21:30)
[2017-01-17] MEDS: OXYCODONE/APAP 10MG-325MG TABLET PO PRN (21:30)
[2017-01-17] MEDS: DULOXETINE HCL 30 MG CAPSULE.DR PO SCH (21:30)
[2017-01-17] MEDS: TOLTERODINE 2 MG PO SCH (23:00)
[2017-01-18] MEDS: IPRATROPIUM BR 0.02% NEB (0.5MG) INH PRN ×2 (07:16→13:41)
[2017-01-18] MEDS ORDERED: RIVAROXABAN 20 MG TABLET PO SCH (10:00)
--- NOTE | 2017-01-18 10:19 | RADIOLOGY REPORT ---
EXAM: CHEST, TWO VIEWS HISTORY: DIFFICULTY IN BREATHING. TECHNIQUE: Frontal and lateral views of the chest were performed. Comparison: 01/04/17. FINDINGS: There is chronic underlying interstitial lung disease. There are superimposed interstitial and alveolar infiltrates. Findings have progressed when compared to the prior exam. IMPRESSION: CHRONIC UNDERLYING INTERSTITIAL LUNG DISEASE. SUPERIMPOSED DIFFUSE INTERSTITIAL AND ALVEOLAR INFILTRATES. FINDINGS HAVE PROGRESSED WHEN COMPARED TO THE PRIOR EXAM. JOB NUMBER: [id number] [facility]
[2017-01-18] MEDS: CAPTOPRIL 12.5 MG TABLET PO SCH ×2 (10:23→16:22)
[2017-01-18] MEDS: FERROUS SULFATE 325 MG TAB PO SCH (10:24)
[2017-01-18] MEDS: DOCUSATE SODIUM 100 MG CAPSULE PO SCH (10:24)
[2017-01-18] MEDS: MELOXICAM 7.5 MG TABLET PO SCH (10:24)
[2017-01-18] MEDS: ASCORBIC ACID 500 MG TAB PO SCH (10:24)
[2017-01-18] MEDS: METFORMIN ER HCL 500 MG TAB.ER.24H PO SCH (10:24)
[2017-01-18] MEDS: CHOLECALCIFEROL 1,000 UNIT TABLET PO SCH (10:25)
[2017-01-18] MEDS: METOPROLOL SUCC 50 MG TABLET PO SCH (10:25)
[2017-01-18] MEDS ORDERED: CALCIUM CARBONATE 500 MG TAB.CHEW PO PRN (11:50)
[2017-01-18] MEDS ORDERED: IRON SUCROSE COMPLEX 500 MG in 0.9 % SODIUM CHLORIDE 250ML 250 ML IVPB ONE (14:15)
[2017-01-18] MEDS: DAPTOMYCIN 500 MG/VIAL IV SCH (14:18)
[2017-01-18] MEDS: 0.9 % SODIUM CHLORIDE 10ML SYR IVP SCH (14:19)
--- NOTE | 2017-01-18 15:27 | Discharge Summary ---
Providers Discharge Summary Date: 01/18/17 Date of admission: 12/15/16 15:24 Expected Date of Discharge: 01/18/17 Attending physician: Carlos Canales Primary care physician: WILLIE FIELDS D.O. Physical Exam - Vital Signs Vital Signs: Vital Signs - Last 24 Hrs Temp Pulse Pulse Resp BP Pulse Ox 01/18/17 13:43 86 16 99 01/18/17 07:44 97.1 F L 82 18 149/83 97 01/18/17 07:26 91 L 01/18/17 07:18 81 17 97 01/18/17 00:40 70 88 L 01/18/17 00:11 67 89 L 01/17/17 21:07 74 20 97 01/17/17 21:00 97.9 F 81 20 143/97 97 01/17/17 16:19 95 01/17/17 16:16 76 19 97 01/17/17 16:13 97 F L 69 18 152/92 95 - General General Appearance: Alert, Oriented x3, Cooperative, No acute distress - Head Head exam: Normal inspection - Eye Eye exam: Normal appearance, PERRL Pupils: Normal accommodation - ENT ENT exam: Normal exam, Mucous membranes moist, Normal external ear exam, Normal orophraynx, TM's normal bilaterally Ear exam: Normal external inspection. negative: External canal tenderness Nasal Exam: Normal inspection. negative: Discharge, Sinus tenderness Mouth exam: Normal external inspection, Tongue normal Teeth exam: Normal inspection. negative: Dental caries Throat exam: Normal inspection. negative: Tonsillar erythema, Tonsillar exudate - Neck Neck exam: Normal inspection, Full ROM. negative: Tenderness - Respiratory Respiratory exam: Normal lung sounds bilaterally. negative: Respiratory distress - Cardiovascular Cardiovascular Exam: Regular rate, Normal rhythm, Normal heart sounds - GI/Abdominal GI/Abdominal exam: Soft, Normal bowel sounds. negative: Tenderness - Rectal Rectal exam: Deferred - exam: Deferred - Extremities Extremities exam: Normal inspection, Full ROM, Normal capillary refill. negative: Tenderness - Back Back exam: Reports: Normal inspection, Full ROM. Denies: Muscle spasm, Rash noted, Tenderness - Neurological Neurological exam: Alert, Normal gait, Oriented X3, Reflexes normal - Psychiatric Psychiatric exam: Normal affect, Normal mood - Skin Skin exam: Dry, Intact, Normal color, Warm Hospitalization - Hospitalization Admission Diagnosis: Deconditioning due to infection of RTK, removal of harware and ABX spacer implanted - Problem List (1) Physical deconditioning Current Visit: Yes Status: Acute Base Code: R53.81 - OTHER MALAISE (2) Infected prosthetic knee joint Current Visit: Yes Status: Acute Base Code: T84.59XA - INFECT/INFLM REACTION DUE TO OTH INTERNAL JOINT PROSTH, INIT; Z96.659 - PRESENCE OF UNSPECIFIED ARTIFICIAL KNEE JOINT (3) Hypertension Current Visit: Yes Status: Acute Base Code: I10 - ESSENTIAL (PRIMARY) HYPERTENSION (4) Hypercholesterolemia Current Visit: Yes Status: Acute Base Code: E78.00 - PURE HYPERCHOLESTEROLEMIA, UNSPECIFIED (5) Diabetes mellitus type 2 in obese Current Visit: Yes Status: Acute Base Code: E11.69 - TYPE 2 DIABETES MELLITUS WITH OTHER SPECIFIED COMPLICATION; E66.9 - OBESITY, UNSPECIFIED (6) Osteoarthritis Current Visit: Yes Status: Acute Base Code: M19.90 - UNSPECIFIED OSTEOARTHRITIS, UNSPECIFIED SITE (7) Pneumonia Current Visit: Yes Status: Acute Discharge Diagnosis: Pneumonia type: due to unspecified organism Laterality: bilateral Lung location: upper lobe of lung Qualified Code(s): J18.9 - Pneumonia, unspecified organism Base Code: J18.9 - PNEUMONIA, UNSPECIFIED ORGANISM (8) Anemia Current Visit: Yes Status: Acute Discharge Diagnosis: Anemia type: iron deficiency Iron deficiency anemia type: inadequate dietary iron intake Qualified Code(s): D50.8 - Other iron deficiency anemias Base Code: D64.9 - ANEMIA, UNSPECIFIED (9) Atrial fibrillation Current Visit: Yes Status: Acute Discharge Diagnosis: Atrial fibrillation type: paroxysmal Qualified Code(s): I48.0 - Paroxysmal atrial fibrillation Base Code: I48.91 - UNSPECIFIED ATRIAL FIBRILLATION Comment: currently in normal sinus rhthym (10) Atrial fib/flutter, transient Current Visit: Yes Status: Acute Base Code: [id number] - (11) Hypoxia Current Visit: Yes Status: Acute Base Code: R09.02 - HYPOXEMIA Comment: requires home oxygen and this started dec - Hospitalization Course Disposition: Home, Self-Care Reason For Discharge/Transfer: Medical Stability Hospital Course: patient transferred to [facility] sub acute rehab and has been here since Dec 15, 2016. Initially she was at [facility] and her right knee replacement became infected and Dr. Gee removed the knee replacement and placed a spacer and she was set up with Cubicin 800 mg IV for 60 days and her last dose is 2016. She developed hospital acquired pneumonia bilateral and became hypoxic dec and has required oxygen since that point. Consulted Dr. Wilcox by phone and added cefepime but she had an allergic reaction to that and her face swelled up and throat raw. She was switched to Meropenem one gm IV q 8 hours for 14 days. and that was stopped on Dec. Chest xray showing interstitial lung disease with persistent infiltrates. She had a CTA done dec which was neg for PE and lung masses. She also had and 2 episodes of atrial fib lasting initially about 5 minutes and another episode lasting about 6 hours. The first episode converted to NSR with carotid massage to stop her heart rate of 150beats per minutes but she went back into atrial fib about 2 hours later which didn't respond to carotid massage. She was given 10 mg of cardizem IV and toprol XL 50 mg and she converted about 4 hours later and she has been in sinus rhythm since than. cardiac enzymes negative. Her stereo compiler is Dr. Truong with [facility] and will set up a cardiology appointment in one to two weeks to check her out before she goes back to Dr. Gee to redue her right knee replacement after the first of the year. Also talked to her [employer]mill Relief Worker Dr. Vines [phone] and he would see her in the next 2-3 weeks. She has MERLY and uses CPAP and will also need oxygen therapy too. Visiting nurses will be coming to the house. Procedures: Imaging and X-Rays 12/25/16 09:15 CHEST CTA w contrast [CTA] Stat 12/28/16 12:57 CHEST 2 VIEWS [RAD] Stat VENOUS DOPPLER LOWER EXT EVELIO [US] Stat 01/04/17 13:22 CHEST 2 VIEWS [RAD] Stat 01/18/17 08:41 CHEST 2 VIEWS [RAD] Stat Cardiology Procedures 12/28/16 13:00 Echo W/CF & Cardiac Doppler NOW 01/06/17 02:29 EKG NOW 01/16/17 00:29 EKG NOW 01/16/17 00:47 EKG NOW 01/16/17 04:41 EKG NOW 01/16/17 09:01 EKG NOW Abnormal Labs: Abnormal Lab Results 12/17/16 12/18/16 12/19/16 Range/Units 07:50 07:44 07:45 WBC (4.2-12.2) K/uL RBC (3.80-5.40) M/uL Hgb (11.6-16.0) gm/dl Hct (35.0-47.0) % MCV (81-97) fl MCH (27-33) pg MCHC (32-36) g/dl RDW (11.5-14.5) % Plt Count (130-400) K/uL Lymphocytes % (16-45) % Monocytes % (0-9) % Eosinophils % (0-6) % Lymphocytes (16-45) % ESR (0-30) mm/hr Eosinophil Count (0-6) % Sodium (136-145) mmol/L Chloride (98-107) mmol/L POC Glucose 121 H 117 H (70-110) mg/dL Random Glucose (74-109) mg/dL Calcium (8.8-10.2) mg/dL Iron (37-145) ug/dL ALT (<33) U/L Alkaline Phosphatase (35-104) U/L Creatine Kinase (26-192) U/L C-Reactive Protein (<0.5) mg/dL Total Protein (6.6-8.7) g/dL Albumin (4.0-5.0) g/dL Albumin/Globulin Ratio (1.1-1.8) Ur Leukocyte Esterase Small H (NEGATIVE) 12/19/16 12/20/16 12/21/16 Range/Units 12:24 07:31 08:13 WBC (4.2-12.2) K/uL RBC (3.80-5.40) M/uL Hgb (11.6-16.0) gm/dl Hct (35.0-47.0) % MCV (81-97) fl MCH (27-33) pg MCHC (32-36) g/dl RDW (11.5-14.5) % Plt Count (130-400) K/uL Lymphocytes % (16-45) % Monocytes % (0-9) % Eosinophils % (0-6) % Lymphocytes (16-45) % ESR (0-30) mm/hr Eosinophil Count (0-6) % Sodium (136-145) mmol/L Chloride 97 L (98-107) mmol/L POC Glucose 121 H 124 H (70-110) mg/dL Random Glucose 137 H (74-109) mg/dL Calcium (8.8-10.2) mg/dL Iron (37-145) ug/dL ALT (<33) U/L Alkaline Phosphatase (35-104) U/L Creatine Kinase (26-192) U/L C-Reactive Protein (<0.5) mg/dL Total Protein (6.6-8.7) g/dL Albumin 3.7 L (4.0-5.0) g/dL Albumin/Globulin Ratio (1.1-1.8) Ur Leukocyte Esterase (NEGATIVE) 12/25/16 12/25/16 12/26/16 Range/Units 05:30 05:30 05:35 WBC (4.2-12.2) K/uL RBC 3.74 L (3.80-5.40) M/uL Hgb 7.6 L (11.6-16.0) gm/dl Hct 26.1 L (35.0-47.0) % MCV 69.8 L (81-97) fl MCH 20.3 L (27-33) pg MCHC 29.1 L (32-36) g/dl RDW 17.8 H (11.5-14.5) % Plt Count (130-400) K/uL Lymphocytes % 9.8 L (16-45) % Monocytes % (0-9) % Eosinophils % (0-6) % Lymphocytes (16-45) % ESR (0-30) mm/hr Eosinophil Count (0-6) % Sodium 133 L (136-145) mmol/L Chloride 96 L 96 L (98-107) mmol/L POC Glucose (70-110) mg/dL Random Glucose 151 H 126 H (74-109) mg/dL Calcium (8.8-10.2) mg/dL Iron (37-145) ug/dL ALT (<33) U/L Alkaline Phosphatase 114 H (35-104) U/L Creatine Kinase (26-192) U/L C-Reactive Protein (<0.5) mg/dL Total Protein 6.5 L (6.6-8.7) g/dL Albumin 3.7 L (4.0-5.0) g/dL Albumin/Globulin Ratio (1.1-1.8) Ur Leukocyte Esterase (NEGATIVE) 12/28/16 12/28/16 12/28/16 Range/Units 14:15 14:15 14:15 WBC (4.2-12.2) K/uL RBC 3.43 L (3.80-5.40) M/uL Hgb 7.1 L (11.6-16.0) gm/dl Hct 23.5 L (35.0-47.0) % MCV 68.5 L (81-97) fl MCH 20.6 L (27-33) pg MCHC 30.2 L (32-36) g/dl RDW 17.4 H (11.5-14.5) % Plt Count (130-400) K/uL Lymphocytes % 8.7 L (16-45) % Monocytes % 11.5 H (0-9) % Eosinophils % (0-6) % Lymphocytes (16-45) % ESR 63 H (0-30) mm/hr Eosinophil Count (0-6) % Sodium (136-145) mmol/L Chloride (98-107) mmol/L POC Glucose (70-110) mg/dL Random Glucose (74-109) mg/dL Calcium (8.8-10.2) mg/dL Iron 5 L (37-145) ug/dL ALT (<33) U/L Alkaline Phosphatase (35-104) U/L Creatine Kinase (26-192) U/L C-Reactive Protein (<0.5) mg/dL Total Protein (6.6-8.7) g/dL Albumin (4.0-5.0) g/dL Albumin/Globulin Ratio (1.1-1.8) Ur Leukocyte Esterase (NEGATIVE) 12/28/16 12/30/16 12/30/16 Range/Units 14:15 07:30 17:00 WBC (4.2-12.2) K/uL RBC (3.80-5.40) M/uL Hgb (11.6-16.0) gm/dl Hct (35.0-47.0) % MCV (81-97) fl MCH (27-33) pg MCHC (32-36) g/dl RDW (11.5-14.5) % Plt Count (130-400) K/uL Lymphocytes % (16-45) % Monocytes % (0-9) % Eosinophils % (0-6) % Lymphocytes (16-45) % ESR (0-30) mm/hr Eosinophil Count (0-6) % Sodium (136-145) mmol/L Chloride 97 L (98-107) mmol/L POC Glucose 258 H 158 H (70-110) mg/dL Random Glucose 166 H (74-109) mg/dL Calcium (8.8-10.2) mg/dL Iron (37-145) ug/dL ALT (<33) U/L Alkaline Phosphatase 118 H (35-104) U/L Creatine Kinase (26-192) U/L C-Reactive Protein (<0.5) mg/dL Total Protein 6.2 L (6.6-8.7) g/dL Albumin 3.4 L (4.0-5.0) g/dL Albumin/Globulin Ratio (1.1-1.8) Ur Leukocyte Esterase (NEGATIVE) 12/31/16 12/31/16 12/31/16 Range/Units 07:35 08:43 08:43 WBC (4.2-12.2) K/uL RBC (3.80-5.40) M/uL Hgb (11.6-16.0) gm/dl Hct (35.0-47.0) % MCV (81-97) fl MCH (27-33) pg MCHC (32-36) g/dl RDW (11.5-14.5) % Plt Count (130-400) K/uL Lymphocytes % (16-45) % Monocytes % (0-9) % Eosinophils % (0-6) % Lymphocytes (16-45) % ESR 75 H (0-30) mm/hr Eosinophil Count (0-6) % Sodium (136-145) mmol/L Chloride (98-107) mmol/L POC Glucose 165 H (70-110) mg/dL Random Glucose (74-109) mg/dL Calcium (8.8-10.2) mg/dL Iron (37-145) ug/dL ALT (<33) U/L Alkaline Phosphatase (35-104) U/L Creatine Kinase (26-192) U/L C-Reactive Protein 15.9 H (<0.5) mg/dL Total Protein (6.6-8.7) g/dL Albumin (4.0-5.0) g/dL Albumin/Globulin Ratio (1.1-1.8) Ur Leukocyte Esterase (NEGATIVE) 01/01/17 01/02/17 01/03/17 Range/Units 09:13 07:49 08:05 WBC (4.2-12.2) K/uL RBC (3.80-5.40) M/uL Hgb (11.6-16.0) gm/dl Hct (35.0-47.0) % MCV (81-97) fl MCH (27-33) pg MCHC (32-36) g/dl RDW (11.5-14.5) % Plt Count (130-400) K/uL Lymphocytes % (16-45) % Monocytes % (0-9) % Eosinophils % (0-6) % Lymphocytes (16-45) % ESR (0-30) mm/hr Eosinophil Count (0-6) % Sodium (136-145) mmol/L Chloride (98-107) mmol/L POC Glucose 265 H 169 H 154 H (70-110) mg/dL Random Glucose (74-109) mg/dL Calcium (8.8-10.2) mg/dL Iron (37-145) ug/dL ALT (<33) U/L Alkaline Phosphatase (35-104) U/L Creatine Kinase (26-192) U/L C-Reactive Protein (<0.5) mg/dL Total Protein (6.6-8.7) g/dL Albumin (4.0-5.0) g/dL Albumin/Globulin Ratio (1.1-1.8) Ur Leukocyte Esterase (NEGATIVE) 01/04/17 01/04/17 01/04/17 Range/Units 06:15 06:15 07:30 WBC 12.9 H (4.2-12.2) K/uL RBC (3.80-5.40) M/uL Hgb 7.6 L (11.6-16.0) gm/dl Hct 26.8 L (35.0-47.0) % MCV 69.3 L (81-97) fl MCH 19.6 L (27-33) pg MCHC 28.4 L (32-36) g/dl RDW 17.8 H (11.5-14.5) % Plt Count 432 H (130-400) K/uL Lymphocytes % (16-45) % Monocytes % (0-9) % Eosinophils % (0-6) % Lymphocytes 13.0 L (16-45) % ESR (0-30) mm/hr Eosinophil Count 14.0 H (0-6) % Sodium (136-145) mmol/L Chloride (98-107) mmol/L POC Glucose 128 H (70-110) mg/dL Random Glucose 123 H (74-109) mg/dL Calcium (8.8-10.2) mg/dL Iron 13 L (37-145) ug/dL ALT 35 H (<33) U/L Alkaline Phosphatase 114 H (35-104) U/L Creatine Kinase (26-192) U/L C-Reactive Protein 2.4 H (<0.5) mg/dL Total Protein 5.9 L (6.6-8.7) g/dL Albumin 3.2 L (4.0-5.0) g/dL Albumin/Globulin Ratio (1.1-1.8) Ur Leukocyte Esterase (NEGATIVE) 01/05/17 01/06/17 01/07/17 Range/Units 08:01 08:10 07:50 WBC (4.2-12.2) K/uL RBC (3.80-5.40) M/uL Hgb (11.6-16.0) gm/dl Hct (35.0-47.0) % MCV (81-97) fl MCH (27-33) pg MCHC (32-36) g/dl RDW (11.5-14.5) % Plt Count (130-400) K/uL Lymphocytes % (16-45) % Monocytes % (0-9) % Eosinophils % (0-6) % Lymphocytes (16-45) % ESR (0-30) mm/hr Eosinophil Count (0-6) % Sodium (136-145) mmol/L Chloride (98-107) mmol/L POC Glucose 129 H 134 H 161 H (70-110) mg/dL Random Glucose (74-109) mg/dL Calcium (8.8-10.2) mg/dL Iron (37-145) ug/dL ALT (<33) U/L Alkaline Phosphatase (35-104) U/L Creatine Kinase (26-192) U/L C-Reactive Protein (<0.5) mg/dL Total Protein (6.6-8.7) g/dL Albumin (4.0-5.0) g/dL Albumin/Globulin Ratio (1.1-1.8) Ur Leukocyte Esterase (NEGATIVE) 01/08/17 01/10/17 01/11/17 Range/Units 07:45 09:25 07:55 WBC (4.2-12.2) K/uL RBC (3.80-5.40) M/uL Hgb (11.6-16.0) gm/dl Hct (35.0-47.0) % MCV (81-97) fl MCH (27-33) pg MCHC (32-36) g/dl RDW (11.5-14.5) % Plt Count (130-400) K/uL Lymphocytes % (16-45) % Monocytes % (0-9) % Eosinophils % (0-6) % Lymphocytes (16-45) % ESR (0-30) mm/hr Eosinophil Count (0-6) % Sodium (136-145) mmol/L Chloride (98-107) mmol/L POC Glucose 151 H 165 H 162 H (70-110) mg/dL Random Glucose (74-109) mg/dL Calcium (8.8-10.2) mg/dL Iron (37-145) ug/dL ALT (<33) U/L Alkaline Phosphatase (35-104) U/L Creatine Kinase (26-192) U/L C-Reactive Protein (<0.5) mg/dL Total Protein (6.6-8.7) g/dL Albumin (4.0-5.0) g/dL Albumin/Globulin Ratio (1.1-1.8) Ur Leukocyte Esterase (NEGATIVE) 01/12/17 01/12/17 01/14/17 Range/Units 08:09 08:09 08:21 WBC 13.8 H (4.2-12.2) K/uL RBC (3.80-5.40) M/uL Hgb 7.6 L (11.6-16.0) gm/dl Hct 27.6 L (35.0-47.0) % MCV 69.7 L (81-97) fl MCH 19.1 L (27-33) pg MCHC 27.5 L (32-36) g/dl RDW 18.9 H (11.5-14.5) % Plt Count 438 H (130-400) K/uL Lymphocytes % 10.9 L (16-45) % Monocytes % (0-9) % Eosinophils % (0-6) % Lymphocytes (16-45) % ESR 48 H (0-30) mm/hr Eosinophil Count (0-6) % Sodium (136-145) mmol/L Chloride (98-107) mmol/L POC Glucose 144 H (70-110) mg/dL Random Glucose 132 H (74-109) mg/dL Calcium 10.9 H (8.8-10.2) mg/dL Iron 9 L (37-145) ug/dL ALT (<33) U/L Alkaline Phosphatase 109 H (35-104) U/L Creatine Kinase 22 L (26-192) U/L C-Reactive Protein 7.88 H (<0.5) mg/dL Total Protein 6.1 L (6.6-8.7) g/dL Albumin 3.2 L (4.0-5.0) g/dL Albumin/Globulin Ratio (1.1-1.8) Ur Leukocyte Esterase (NEGATIVE) 01/15/17 01/16/17 01/16/17 Range/Units 08:03 08:17 09:30 WBC 13.4 H (4.2-12.2) K/uL RBC (3.80-5.40) M/uL Hgb 8.7 L (11.6-16.0) gm/dl Hct 30.4 L (35.0-47.0) % MCV 68.2 L (81-97) fl MCH 19.5 L (27-33) pg MCHC 28.6 L (32-36) g/dl RDW 20.1 H (11.5-14.5) % Plt Count 436 H (130-400) K/uL Lymphocytes % 9.9 L (16-45) % Monocytes % (0-9) % Eosinophils % (0-6) % Lymphocytes (16-45) % ESR (0-30) mm/hr Eosinophil Count (0-6) % Sodium (136-145) mmol/L Chloride (98-107) mmol/L POC Glucose 150 H 147 H (70-110) mg/dL Random Glucose (74-109) mg/dL Calcium (8.8-10.2) mg/dL Iron (37-145) ug/dL ALT (<33) U/L Alkaline Phosphatase (35-104) U/L Creatine Kinase (26-192) U/L C-Reactive Protein (<0.5) mg/dL Total Protein (6.6-8.7) g/dL Albumin (4.0-5.0) g/dL Albumin/Globulin Ratio (1.1-1.8) Ur Leukocyte Esterase (NEGATIVE) 01/16/17 01/17/17 01/17/17 Range/Units 09:30 06:55 06:55 WBC 16.4 H (4.2-12.2) K/uL RBC (3.80-5.40) M/uL Hgb 8.8 L (11.6-16.0) gm/dl Hct 31.1 L (35.0-47.0) % MCV 68.4 L (81-97) fl MCH 19.3 L (27-33) pg MCHC 28.3 L (32-36) g/dl RDW 20.5 H (11.5-14.5) % Plt Count 459 H (130-400) K/uL Lymphocytes % 12.4 L (16-45) % Monocytes % (0-9) % Eosinophils % 6.2 H (0-6) % Lymphocytes (16-45) % ESR 41 H (0-30) mm/hr Eosinophil Count (0-6) % Sodium (136-145) mmol/L Chloride (98-107) mmol/L POC Glucose (70-110) mg/dL Random Glucose 146 H (74-109) mg/dL Calcium 12.2 H (8.8-10.2) mg/dL Iron 32 L 23 L (37-145) ug/dL ALT (<33) U/L Alkaline Phosphatase 117 H (35-104) U/L Creatine Kinase (26-192) U/L C-Reactive Protein 7.02 H (<0.5) mg/dL Total Protein (6.6-8.7) g/dL Albumin 3.5 L (4.0-5.0) g/dL Albumin/Globulin Ratio 1.0 L (1.1-1.8) Ur Leukocyte Esterase (NEGATIVE) 01/18/17 Range/Units 07:46 WBC (4.2-12.2) K/uL RBC (3.80-5.40) M/uL Hgb (11.6-16.0) gm/dl Hct (35.0-47.0) % MCV (81-97) fl MCH (27-33) pg MCHC (32-36) g/dl RDW (11.5-14.5) % Plt Count (130-400) K/uL Lymphocytes % (16-45) % Monocytes % (0-9) % Eosinophils % (0-6) % Lymphocytes (16-45) % ESR (0-30) mm/hr Eosinophil Count (0-6) % Sodium (136-145) mmol/L Chloride (98-107) mmol/L POC Glucose 149 H (70-110) mg/dL Random Glucose (74-109) mg/dL Calcium (8.8-10.2) mg/dL Iron (37-145) ug/dL ALT (<33) U/L Alkaline Phosphatase (35-104) U/L Creatine Kinase (26-192) U/L C-Reactive Protein (<0.5) mg/dL Total Protein (6.6-8.7) g/dL Albumin (4.0-5.0) g/dL Albumin/Globulin Ratio (1.1-1.8) Ur Leukocyte Esterase (NEGATIVE) Condition at Discharge: (2) Stable Discharge Diagnosis: Right knee prosthesis infection with a spacer and IV cubicin for 60 days last day jan. hypoxia reqiring home oxygen 3 liter per minute. MERLY requiring cPAP. Bilateral hospital aquired pneumonia. paroxysmal Atrial fibrillation and currently in NSR and on xarelto. DM type 2. HTN. hyperchol. OA Discharge Medications - Discharge Medications Prescriptions: Duloxetine HCl [Cymbalta] 30 mg PO QHS #30 capsule. Pantoprazole Sodium [Protonix] 40 mg PO QHS #30 tablet. Trazodone HCl [Desyrel] 50 mg PO QHS #30 tab Ascorbic Acid [Vitamin C] 1,000 mg PO BID #120 tab Captopril [Capoten] 50 mg PO TID #90 tab Daptomycin [Cubicin] 800 mg IV 1500 #19 ml Ferrous Sulfate [Iron] 325 mg PO BID #120 tablet Ipratropium Dukedom [Atrovent Hfa] 2 puff IH QID #1 hfa.aer.ad Metoprolol Succinate [Toprol Xl] 50 mg PO DAILY #30 tab.er.24h Oxycodone HCl/Acetaminophen [Percocet 10mg/325mg] 1 each PO Q4H PRN #60 tablet PRN Reason: Analgesia Rivaroxaban [Xarelto] 20 mg PO DAILY 30 Days tab Home Medications: Ambulatory Orders Acetaminophen [Tylenol 325Mg] 650 mg PO Q4H PRN tablet 01/18/17 [Last Taken Unknown] Ascorbic Acid [Vitamin C] 1,000 mg PO BID #120 tab 01/18/17 [Last Taken Unknown] Aspirin Enteric-Coated [Ecotrin (EC)] 81 mg PO QHS tabec 01/18/17 [Last Taken Unknown] Captopril [Capoten] 50 mg PO TID #90 tab 01/18/17 [Last Taken Unknown] Daptomycin [Cubicin] 800 mg IV 1500 #19 ml 01/18/17 [Last Taken Unknown] Docusate Sodium [Colace] 100 mg PO BID cap 01/18/17 [Last Taken Unknown] Duloxetine HCl [Cymbalta] 30 mg PO QHS #30 capsule. 01/18/17 [Last Taken Unknown] Ferrous Sulfate [Iron] 325 mg PO BID #120 tablet 01/18/17 [Last Taken Unknown] Ipratropium Dukedom [Atrovent Hfa] 2 puff IH QID #1 hfa.aer.ad 01/18/17 [Last Taken Unknown] Metformin ER HCl [Glucophage Xr] 500 mg PO DAILY tab.er.24h 01/18/17 [Last Taken Unknown] Metoprolol Succinate [Toprol Xl] 50 mg PO DAILY #30 tab.er.24h 01/18/17 [Last Taken Unknown] Oxycodone HCl/Acetaminophen [Percocet 10mg/325mg] 1 each PO Q4H PRN #60 tablet 01/18/17 [Last Taken Unknown] Pantoprazole Sodium [Protonix] 40 mg PO QHS #30 tablet. 01/18/17 [Last Taken Unknown] Rivaroxaban [Xarelto] 20 mg PO DAILY 30 Days tab 01/18/17 [Last Taken Unknown] Simvastatin [Zocor] 10 mg PO QHS tab 01/18/17 [Last Taken Unknown] Trazodone HCl [Desyrel] 50 mg PO QHS #30 tab 01/18/17 [Last Taken Unknown] Discharge Plan - Discharge Instructions Activity at Discharge: Increase Activity as Tolerated Diet at Discharge: Low Salt Diet Additional Instructions: You have been approved for [employer] services for transportation and will be receiving a packet in the mail with information on how to set up a ride. [phone] IV antibiotics will be provided by [facility] [phone] Home healthcare will be provided by [facility] [phone] Appointment with MICHEL Canales at Dr. Fields's office Wednesday01/25/17, 1:00PM Follow up with Dr. Gee on 01/22/17 as scheduled follow up with Dr. Vines ([facility]) in 2-3 weeks follow up with Jeri in 2-3 weeks (Infectious Disease) follow up with Dr Truong([facility]) in one to two weeks Quality Measures - Quality Measures Quality Measures: Advance Directives, Documentation of Current Medications in Medical Record, Elder Maltreatment Screen and Follow-Up Plan, Screening for High Blood Pressure and F/U Documented - Current Medications Quality Measure: Measure #130: Documentation of Current Medications Documentation of Current Medications: <Current Medications Documented/Reviewed> [[id number]] - Blood Pressure Screening Quality Measure: Screening for High Blood Pressure and Follow-Up Documented Does Patient Have Any of the Following: Active Dx of HTN Blood Pressure Classification: Hypertensive Reading Systolic Measurement: 180 Diastolic Measurement: 79 Screening for High Blood Pressure: Patient Exclusion, Hx of HTN [X8364] - Atrial Fibrillation and Atrial Flutter View Details: Yes Does Patient Have Any of the Following: No CHADS2 Risk Stratification: Hypertension, Diabetes Mellitus Risk Stratification Summary: One or more high risk factors OR more than one moderate risk factor exists. [G8972] Anticoagulation Therapy: <Oral anticoagulant Prescribed> [[id number]] - Advance Directives Quality Measure: Measure #47: Care Plan Advance Directives Established: No Advance Directives Information Provided To Patient: No Advance Directives on File: No Living Will: No Power of Industrial [employer] Servicer Helper: No Advance Care Planning: <Care Plan/Decision Maker Documented; Discussed & Documented> [0601F] - Elder Abuse Suspicion Index Screening: Elder Abuse Suspicion Index Screening Rely on people for bathing, dressing, shopping, banking, etc: No Prevented from getting food, clothes, medication, etc: No Made to feel shamed or threatened by someone: No Forced to sign papers or use money against will: No Feel afraid, touched in ways not wanted or hurt physically: No Poor eye contact, withdrawn, malnourished, cuts or bruises: No Screening Result: Negative result EASI Reference Information: Jak MAYER, Wilbur C, Lesia Rodriguez, Yordy Tejeda.Development and validation of a tool to assist physicians identification of elder abuse: The Elder Abuse Suspicion Index (EASI ). Journal of Elder Abuse and Neglect, 2008; 20 (3): 276-300. - Elder Maltreatment Screen Quality Measures: Elder Maltreatment Screen and Follow-Up Plan Elder Maltreatment Screen: <Negative, No Follow-Up Plan Required> [G8734]
[2017-01-18] MEDS: HEPARIN SODIUM FLUSH 100 UNITS/ML SYR 5ML IVP SCH (16:23)
--- NOTE | 2017-01-19 07:00 | Discharge Summary ---
DATE OF DISCHARGE: 01/18/2017 DISCHARGE DIAGNOSES: 1. 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 2. Bilateral hospital-acquired pneumonia. She had a treatment course of 14 days of meropenem 1 g IV q.8 h. for 14 days. 3. Paroxysmal atrial fibrillation, two episodes, one lasting a few minutes, converted with vasovagal massage therapy by the nurse at the bedside when she had a rate of 150. The second episode started about 2 hours later, lasted about 4 hours, IV Cardizem at 10 mg and Toprol-XL 50 mg orally and she converted about 5-6 hours later. She has been normal sinus rhythm since. She has also been placed on Xarelto 20 mg daily. 4. Hypoxia requiring oxygen 3L/min nasal cannula. 5. Obstructive sleep apnea requiring CPAP. 6. Diabetes mellitus type 2. 7. Hypertension. 8. Hypercholesterolemia. 9. Osteoarthritis. ATTENDING PHYSICIAN: Carlos Canales DO REASON FOR HOSPITALIZATION: This 76-year-old female had an infected right knee prosthesis removed by Dr. Gee, had an antibiotic spacer placed. She was placed on IV Cubicin by Infectious Disease, Dr. Wilcox. She came to our hospital for subacute rehab and has been here since 12/15/2016. During this subacute rehab, she had an episode of pneumonia, hospital-acquired pneumonia and hypoxia. CTA of the chest was negative for PE or masses. She has infiltrates consistent with pneumonia. She was placed on initially Rocephin, switched to Ceftin, had an allergic reaction to that where her face swelled up and her throat became raw. She was switched over to meropenem 1 g q.8 h. for a total of 14 days of therapy. Stopped. Last dose of that was , 01/14/2017. The patient's turret lathe tender is Dr. Gaston. We will have her follow up with [facility] in 1-2 weeks to check her paroxysmal atrial fibrillation and see if there is any more therapy that needs to be done before her next surgery planned after the first of the year by Dr. Gee to replace her knee after the antibiotics are done. She had an echocardiogram during this hospitalization which showed a normal ejection fraction. The patient has gradually gotten better. Still is weak but at this point is stable and can go home for further care. She is to follow up outpatient with her family doctor, Dr. Aguilar, her infectious disease doctor, Dr. Wilcox, the cut off machine helper. Discussed the case with him. He will be following up with her in 2-3 week, Dr. Vines. Dr. Gaston is her turret lathe tender with [facility]. She is to get weekly CBC, CMP, sed rate, CRP, CPK, serum iron. During this hospitalization she was anemic. She also got oral iron and IV iron therapy and her hemoglobin is at about 8.8 today on discharge, coming up from about 7.0. SIGNIFICANT FINDINGS: Last set of labs prior to discharge, WBC 16,400, hemoglobin 8.8, platelet count is up at 459, sed rate 41 which is gradually coming down. Her serum iron is 23. BUN 19, creatinine 0.5, potassium 4.1. CK is normal at 26. C-reactive protein slowly coming down at 7.02. THERAPY PROVIDED: She was treated for pneumonia with IV antibiotics. She also was treated with atrial fibrillation to control her rate, and she converted to normal sinus rhythm with IV Cardizem and Toprol 50 mg XL. HOSPITAL COURSE: She had multiple things happen but she seems to be improving gradually. CONDITION ON DISCHARGE: Stable. DISCHARGE INSTRUCTIONS: Weekly CBC, CMP, sed rate, CRP, CPK, and serum iron. Cubicin 800 mg IV for a total of 60 days until 02/06/2017. Follow up with Dr. Wilcox in 2 weeks. Follow up with the pulmonary doctor, Dr. Vines in 2-3 weeks. Follow up with Dr. Gaston with [facility] in 1-2 weeks. Capoten 50 mg t.i.d., Cymbalta 30 mg q.h.s., Ecotrin 81 mg daily, Detrol LA 2 mg at bedtime, Protonix 40 mg q.h.s., Zocor 10 mg q.h.s., Glucophage XR 500 mg daily, vitamin D3 at 5000 units daily, heparin flush per protocol in PICC line, Percocet 10 mg q.4 h. p.r.n. pain, use as little as possible, Tylenol 650 q.6 h. p.r.n. but not to exceed 4 g per day and she should take into consideration there is Tylenol in the Percocet, Atrovent inhaler 2 puffs q.i.d. p.r.n., ferrous sulfate 325 b.i.d. orally, vitamin C 1000 mg b.i.d., trazodone 50 mg q.h.s. p.r.n. insomnia, Robitussin DM 10 mL q.4 h. p.r.n. over the counter, Toprol-XL 50 mg daily, Xarelto 20 mg daily, Tums 1000 mg q.4 h. p.r.n. MTDD
--- NOTE | 2017-01-19 07:47 | Rehab Discharge Summary ---
Patient Information - Patient Information Diagnosis: deconditioning d/t infection of R TK removal of hardware, ABX spacer implan Ordered Treatment: OT Evaluate and Treat Surgery: No History: Detail (The patient was transferred from [facility] to the Swing Bed Unit for IV antiboitics and Rehab on 12/15/16.) Past Medical/Surgical Hx: PAST MEDICAL/SURGICAL HISTORY Past Surgical History tonsillectomy 1947, appendix 1950, gall bladded - 1966, partial vaginal hysterectomy 1976, ovarian cysts removed-1983, left knee scope-1984, left inferior [place] after breaking left leg-1991, sepsis and heart attack 2003, kidney stones removed 2003, spinal fusion 2005 or 2005, sleep apnea 2006, basal cell carcinoma left shoulder 2007 or 2008, Sepsis 2008, back surgery to remove hardware 2009, kidneys stones pulverized-2009, tendon replacement right thumb 2011, toe removed right foot 2013, toe removed left foot 2014, left knee total joint July 2015, right knee total joint September 2015, rhizotomy for back pain 2015 and 2016, ventral hernia repair 11-12-16. 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 PMH - Respiratory Hx Asthma No Hx Bronchitis No Hx Chronic Obstructive No Pulmonary Disease (COPD) Hx Dyspnea Yes: exposure to smoke causes RENETTA Hx Pneumonia Yes Hx Pulmonary Embolism No Hx Sleep Apnea Yes Hx Tuberculosis No Hx of CPAP Yes PMH - Cardiovascular Hx Cardiovascular Disorders Yes Hx Cardiac Catheterization Yes Hx Chest Pain Yes Hx Congestive Heart Failure No Hx Deep Vein Thrombosis No Hx Edema Yes: bilateral lower legs and feet Hx Heart Attack Yes: x2 Hx Hypertension Yes Hx Hypotension No Hx Irregular Heartbeat No Hx Palpitations No Hx Pacemaker/Defibrillator No Hx Vascular Disease No Hx Transient Ischemic Attacks No (TIA) PMH - Neuro Hx Neurological Disorders No Hx Brain Tumor No Hx Cerebrovascular Accident No Hx Dementia No Hx Dizziness No Hx Headaches No Hx Neuropathy No Hx Parkinson's Disease No Hx Seizures No Hx Speech Problem No Hx Syncope No Hx Transient Ischemic Attacks No (TIA) PMH - GI Hx Gastrointestinal Disorders No Hx Abdominal Pain No Hx Celiac Disease No Hx Crohn's Disease No Hx Diverticulitis No Hx Gastrointestinal Bleed No Hx Gastroesophageal Reflux No Hx Hepatitis/Jaundice No Hx Hiatal Hernia No Hx Irritable Bowel No Hx Liver Disease No Hx Nausea/Vomiting No Hx Obstructive Bowel No Hx Pancreatitis No Hx Rectal Bleeding No Hx Ulcer No Hx Weight Loss/Weight Gain No PMH - Patient No Hx Bladder Problem Yes: Incontinence, urgency. Had UA done at [facility], results pending Hx Dialysis No Hx Kidney Stones Yes: and sepsis Hx Renal Disease No Hx Urinary Tract Infection Yes Comment: Approximately 40 years ago PMH - Endocrine Hx Endocrine Disorders Yes Hx Diabetes Yes Hx Thyroid Disease Yes Comment: Does daily accuchecks in am PMH - Musculoskeletal Hx Musculoskeletal Disorders Yes Hx Arthritis Yes Hx Back Injury Yes Hx Fibromyalgia No Hx Gout No Hx Musculoskeletal Disease No Hx Osteoporosis No Comment: Spinal surgery PMH - Psych Hx Psychiatric Problems No Hx Anxiety No Hx Behavior Problems No Hx Depression No Hx Emotional Abuse No Hx Sexual Abuse No Hx Suicide Attempt No Major Depressive Episode No Feelings of Hopelessness No PMH - Hematology/Oncology Hx Hematology/Oncology Yes Disorders Hx Anemia Yes: After daughters , none since Hx Blood Disorders No Hx Bruising No Hx Cancer Yes: Basal cell carcinoma removed from left shoulder, no further treatment Hx Chemotherapy No Hx Radiation Therapy No Hx Clotting Problems No Hx Unexplained Bleeding No Premorbid Status: Detail (Pt lives alone in a 2 story house with basement. She stays on the 1st floor. She has 4 steps with imer handrails at the entrance. She has a tub/shower combination with grab bars and she usually stands to shower. She is unable to use her walker in the bathroom therefore she uses a cane in the bathroom. Prior to hospitalization she was Ind with driving, meal prep and self cares. Her daughter completes laundry and assists with home mgmt. She has an elevated toilet, a 2 wheeled walker, a 4 wheeled walker, 4 straight canes and 2 reachers.) Social History: Detail (Pt has 3 daughters who live locally and a sister.) Precautions: [place], Fall, Other (PWB right LE) Subjective Information - Subjective Information Per Patient Objective Data - Pain Pain Present: Yes (right knee pain) - Mental Status Patient Orientation: Oriented x3 - Visual Perception Appears within normal limits for therapeutic activities - ROM Within normal limits (Imer UE AROM WNL) - Strength/Tone Within normal limits (Imer UE MMT 4+/5, endurance improved from evaluation for functional UE activities) - Coordination Appears within normal limits for therapeutic activities - Bed Mobility Independent - Transfers Independent - Balance Balance Sitting: Good Balance Standing: Good - Sensation Intact - Gait Detail (Pt ambulating with 2 wheeled walker Indly household distances.) - ADL's/IADL's Detail (Pt demonstrates Ind with showering in sitting and standing, total body dressing with use of steam tender (pt unable to don socks but prefers to wear slip on shoes without socks).) Therapy Assessment - Therapy Assessment Detail (Pt is safe and Ind with self cares and functional mobility needed to allow return home.) Problem List - Problem List Physical Therapy Problem List: Detail (1) Unable to maintain PWB status on R LE 2) Decreased ambulation distance 3) Nonambulatory on stairs) Occupational Therapy Problem List: Detail (1. Decreased endurance needed for ADLs/IADLs. 2. Decreased Ind with total body dressing. 3. Decreased Ind with showering/bathing.) Goals - Goals Physical Therapy Goals: 1) The patient will ambulate with wheeled walker a distance of 100 feet x 1, PWB on the R LE. 2) Ambulation on stairs with supervision. 3) The patient will be able to safely assess bathroom at home with use of alternate assistive device ( not walker). Occupational Therapy Goals: Goals Met: 1. Pt will be Ind with total body dressing using adaptive equipment. 2. Pt will be Ind with showering and/or sponge bathing at sink. 3. Pt will demonstrate improved endurance to allow safe and Ind return home. Prognosis - Prognosis Good Plan - Plan Physical Therapy Plan: PT 3 to 4 times a week M- for gait training on levels and stairs and functional acitivities. Occupational Therapy Plan: Pt discharged home on 01/18/17 with home OT/PT.
--- NOTE | 2017-01-19 09:49 | Rehab Discharge Summary ---
Patient Information - Patient Information Diagnosis: deconditioning d/t infection of R TK removal of hardware, ABX spacer implan Ordered Treatment: PT Evaluate and Treat Surgery: No History: Detail (The patient was transferred from [facility] to the Swing Bed Unit for IV antiboitics and Rehab on 12/15/16.) Past Medical/Surgical Hx: PAST MEDICAL/SURGICAL HISTORY Past Surgical History tonsillectomy 1947, appendix 1950, gall bladded - 1966, partial vaginal hysterectomy 1976, ovarian cysts removed-1983, left knee scope-1984, left inferior [place] after breaking left leg-1991, sepsis and heart attack 2003, kidney stones removed 2003, spinal fusion 2005 or 2005, sleep apnea 2006, basal cell carcinoma left shoulder 2007 or 2008, Sepsis 2008, back surgery to remove hardware 2009, kidneys stones pulverized-2009, tendon replacement right thumb 2011, toe removed right foot 2013, toe removed left foot 2014, left knee total joint July 2015, right knee total joint September 2015, rhizotomy for back pain 2015 and 2016, ventral hernia repair 11-12-16. 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 PMH - Respiratory Hx Asthma No Hx Bronchitis No Hx Chronic Obstructive No Pulmonary Disease (COPD) Hx Dyspnea Yes: exposure to smoke causes RENETTA Hx Pneumonia Yes Hx Pulmonary Embolism No Hx Sleep Apnea Yes Hx Tuberculosis No Hx of CPAP Yes PMH - Cardiovascular Hx Cardiovascular Disorders Yes Hx Cardiac Catheterization Yes Hx Chest Pain Yes Hx Congestive Heart Failure No Hx Deep Vein Thrombosis No Hx Edema Yes: bilateral lower legs and feet Hx Heart Attack Yes: x2 Hx Hypertension Yes Hx Hypotension No Hx Irregular Heartbeat No Hx Palpitations No Hx Pacemaker/Defibrillator No Hx Vascular Disease No Hx Transient Ischemic Attacks No (TIA) PMH - Neuro Hx Neurological Disorders No Hx Brain Tumor No Hx Cerebrovascular Accident No Hx Dementia No Hx Dizziness No Hx Headaches No Hx Neuropathy No Hx Parkinson's Disease No Hx Seizures No Hx Speech Problem No Hx Syncope No Hx Transient Ischemic Attacks No (TIA) PMH - GI Hx Gastrointestinal Disorders No Hx Abdominal Pain No Hx Celiac Disease No Hx Crohn's Disease No Hx Diverticulitis No Hx Gastrointestinal Bleed No Hx Gastroesophageal Reflux No Hx Hepatitis/Jaundice No Hx Hiatal Hernia No Hx Irritable Bowel No Hx Liver Disease No Hx Nausea/Vomiting No Hx Obstructive Bowel No Hx Pancreatitis No Hx Rectal Bleeding No Hx Ulcer No Hx Weight Loss/Weight Gain No PMH - Patient No Hx Bladder Problem Yes: Incontinence, urgency. Had UA done at [facility], results pending Hx Dialysis No Hx Kidney Stones Yes: and sepsis Hx Renal Disease No Hx Urinary Tract Infection Yes Comment: Approximately 40 years ago PMH - Endocrine Hx Endocrine Disorders Yes Hx Diabetes Yes Hx Thyroid Disease Yes Comment: Does daily accuchecks in am PMH - Musculoskeletal Hx Musculoskeletal Disorders Yes Hx Arthritis Yes Hx Back Injury Yes Hx Fibromyalgia No Hx Gout No Hx Musculoskeletal Disease No Hx Osteoporosis No Comment: Spinal surgery PMH - Psych Hx Psychiatric Problems No Hx Anxiety No Hx Behavior Problems No Hx Depression No Hx Emotional Abuse No Hx Sexual Abuse No Hx Suicide Attempt No Major Depressive Episode No Feelings of Hopelessness No PMH - Hematology/Oncology Hx Hematology/Oncology Yes Disorders Hx Anemia Yes: After daughters , none since Hx Blood Disorders No Hx Bruising No Hx Cancer Yes: Basal cell carcinoma removed from left shoulder, no further treatment Hx Chemotherapy No Hx Radiation Therapy No Hx Clotting Problems No Hx Unexplained Bleeding No Premorbid Status: Detail (Pt lives alone in a 2 story house with basement. She stays on the 1st floor. She has 4 steps with shiela handrails at the entrance. She has a tub/shower combination with grab bars and she usually stands to shower. She is unable to use her walker in the bathroom therefore she uses a cane in the bathroom. Prior to hospitalization she was Ind with driving, meal prep and self cares. Her daughter completes laundry and assists with home mgmt. She has an elevated toilet, a 2 wheeled walker, a 4 wheeled walker, 4 straight canes and 2 reachers.) Social History: Detail (Pt has 3 daughters who live locally and a sister.) Precautions: [place], Fall, Other (PWB right LE) Subjective Information - Subjective Information Per Patient (The patient continues to have variable complaints of R knee pain. The patient complains of sharp knee pain at rest at times. The patient did not rate her pain using 0-10 pain scale.) Objective Data - Mental Status Patient Orientation: Oriented x3 - Visual Perception Appears within normal limits for therapeutic activities - ROM Not within normal limits (The patient's R knee AROM is flexion to 90 degrees and extension to 0 ( The patient is to complete pain free motion only.) - Strength/Tone Not within normal limits (The patient's L LE strength is generally 4+ to 5/5. The patient's R LE was not formally tested using resistance due to post surgery precaution howver the patient's strength is functional. ( The patient is able to acheive a SLR and ambulate with WBAT without difficulty.)) - Bed Mobility Independent (The patient is independent with supine to and from sit transfer and scooting up in bed.) - Transfers Independent (The patient is independent with sit to and from stand transfer, and toilet transfer. The patient denies difficulty with car transfers. The patient has been out for appointments.) - Balance Balance Sitting: Good Balance Standing: Good - Gait Detail (The patient ambulated with wheeled walker independently WBAT on the R LE a distance of 100 feet plus without O2. The patient's O2 sat. level remained in the 90's, occasional shortness of breath was noted. The patient was independent with ambulating up and down stairs with use of 2 railings. The patient was also independent with occasional verbal cues for proper technique with sidestepping with use of parallel bar ( simulating bathroom setup).) Therapy Assessment - Therapy Assessment Detail (The patient was independent with all mobility. Activity limitations were due to episodes of shortness of breath. Home PT is recommended short term to assess the patient's safety with mobility at home.) Patient Education - Patient Education Teaching Topic: Exercise/Activity (LE exercises within precautions per Dr. Gee.) Response: Return Demonstration Teaching Method: Demonstration, Handout Teaching Recipient: Patient Barriers To Learning: Age Related Problem List - Problem List Physical Therapy Problem List: Detail (1) Unable to maintain PWB status on R LE 2) Decreased ambulation distance 3) Nonambulatory on stairs) Occupational Therapy Problem List: Detail (1. Decreased endurance needed for ADLs/IADLs. 2. Decreased Ind with total body dressing. 3. Decreased Ind with showering/bathing.) Goals - Goals Physical Therapy Goals: GOALS MET: 1) The patient will ambulate with wheeled walker a distance of 100 feet x 1, PWB on the R LE. 2) Ambulation on stairs with supervision. 3) The patient will be able to safely assess bathroom at home with use of alternate assistive device ( not walker). Occupational Therapy Goals: Goals Met: 1. Pt will be Ind with total body dressing using adaptive equipment. 2. Pt will be Ind with showering and/or sponge bathing at sink. 3. Pt will demonstrate improved endurance to allow safe and Ind return home. Plan - Plan Physical Therapy Plan: The patient discharged to home on 01/18/17 and is to receive home PT/OT services. Occupational Therapy Plan: Pt discharged home on 01/18/17 with home OT/PT.
== END 2017-01-18 19:30 | disposition home or self-care (01) | DRG 947 ==
LOC: MEDSURG 15:24
PROVIDERS: ADMIT Emergency Medicine; ATTEND Emergency Medicine
DX: R53.81 Other malaise (principal); J18.9 Pneumonia, unspecified organism; T84.59XA Infection and inflammatory reaction due to other internal joint prosthesis, initial encounter; Y95 Nosocomial condition; I10 Essential (primary) hypertension; E78.00 Pure hypercholesterolemia, unspecified; E11.9 Type 2 diabetes mellitus without complications; Z79.84 Long term (current) use of oral hypoglycemic drugs; E66.9 Obesity, unspecified; M19.90 Unspecified osteoarthritis, unspecified site; Z87.891 Personal history of nicotine dependence; R22.0 Localized swelling, mass and lump, head; T36.1X5A Adverse effect of cephalosporins and other beta-lactam antibiotics, initial encounter; Y92.230 Patient room in hospital as the place of occurrence of the external cause; I48.91 Unspecified atrial fibrillation; D50.9 Iron deficiency anemia, unspecified; Z79.01 Long term (current) use of anticoagulants
CPT/HCPCS: 36416; 71020; 71275; 80048; 80053; 81001; 82272; 82550; 82553; 82565; 82948; 83540; 84484; 84520; 85025; 85027; 85651; 86140; 87040; 93005; 93307; 93970; 94010; 94620; 94640; 94760; 94761; 97110; 97140; 97165; 97530; 97535; 99304; J0878; J1650; J2930; J7050